=== PATIENT | male | born 1960 | race Caucasian/White ===

== ENCOUNTER 2018-04-20 11:20 | Inpatient (IN) | payer OTHER ==
[2018-04-20] MEDS ORDERED: Adacel (T-DAP) 0.5 ML SYRINGE ONE (11:30)
[2018-04-20] MEDS ORDERED: Dexamethasone 10 MG/ML VIAL ONE (11:30)
[2018-04-20 12:02] LABS: Actual Bicarbonate (HCO3a) 16.3 mEq/L (22-28); Analyzer IN Cardio ER; CO2 Tension 33.2 mmHg (35.0-45.0); Carboxyhemoglobin (COHb) 1.1 gm% (0.0-3.0); Hemoglobin (Hb) 13.2 g/dL (14.0-18.0); pH, Arterial 7.31 (7.35-7.45)
[2018-04-20 12:03] LABS: Puncture Site RRA
[2018-04-20] MEDS ORDERED: Propofol 1,000 MG/100 ML VIAL IV ONE (12:19)
[2018-04-20] MEDS ORDERED: Cefepime 2 GM VIAL ONE (12:22)
[2018-04-20] MEDS ORDERED: Midazolam HCl 2 mg/2 ml Vial ONE (12:29)
[2018-04-20 12:43] LABS: Bilirubin Negative (Negative); Blood, Urine Moderate (Negative); Clarity CLEAR (Clear); Glucose, Urine (Dipstick) Negative (Negative); Leukocyte Negative (Negative); Nitrite Negative (Negative); Protein, Urine (Dipstick) Trace mg/dL (Neg-Trace); Specific Gravity, Urine 1.016 (1.002-1.036); Urobilinogen 0.2 mg/dL (0.2-1.0)
[2018-04-20 12:46] LABS: Bacteria/HPF None Seen HPF (None Seen); Hyaline Casts/LPF 4-6 HYALINE CAST LPF (0-3 Hyaline); Pathc Cast-AUWi Flag 1.01 (0-2.49); Squamous Epithelial 0-3 HPF (0-3); WBC/HPF 0-3 HPF (0-3)
[2018-04-20] MEDS ORDERED: Bacitracin Zinc 1 Packet ONE (13:57)
[2018-04-20 14:24] LABS: Acetaminophen Less than 6.0 mcg/mL (10.0-30.0); Alcohol Less than 10 mg/dL (Less than 10); Salicylate Less than 8.0 mg/dL (15.0-30.0)
[2018-04-20 14:30] LABS: Amphetamine Not Detected (NotDetected); Barbiturates Screen Detected (NotDetected); Benzodiazepine Screen Not Detected (NotDetected); Cocaine Metabolite Screen Not Detected (NotDetected); Medtox Control Line Valid? VALID (VALID); Medtox Reader # READER 1; Methadone Not Detected (NotDetected); Methamphetamine Not Detected (NotDetected); Opiate Screen Not Detected (NotDetected); Oxycodone Screen Not Detected (NotDetected); Phencyclidine (PCP) Not Detected (NotDetected); THC/Cannabinoid Screen Not Detected (NotDetected); Tricyclic Screen Not Detected (NotDetected)
[2018-04-20] MEDS ORDERED: Sodium Chloride 0.9% 1,000 ML IV SCH (15:17)
[2018-04-20] MEDS ORDERED: Ondansetron ODT 4 MG TAB PO PRN (15:17)
[2018-04-20] MEDS ORDERED: Ondansetron PF 4 MG/2 ML Vial IVP PRN (15:17)
[2018-04-20] MEDS ORDERED: traMADol HCl 50 MG TAB PO PRN (15:17)
[2018-04-20] MEDS ORDERED: Dextrose 50% Abboject 50 ML SYRINGE SLOW IVP PRN (15:17)
[2018-04-20] MEDS ORDERED: Dextrose 5% in Water 1,000 ML IV PRN (15:17)
[2018-04-20] MEDS ORDERED: Cyclobenzaprine 10 MG TAB PO PRN (15:17)
[2018-04-20] MEDS ORDERED: hydrALAZINE 20 MG/ML VIAL SLOW IVP PRN (15:17)
[2018-04-20 15:27] VITALS: BMI 23.8
[2018-04-20] MEDS ORDERED: Acetaminophen 1,000 MG in Premix Bag 1 BAG IVPB SCH (15:30)
[2018-04-20 16:07] LABS: #Lymphocytes 0.4 thou/uL (1.20-3.40); #Monocytes 0.5 thou/uL (0.11-0.59); #Neutrophils 12.1 thou/uL (1.40-6.50); %Basophils 0.1 % (0.0-1.0); %Eosinophils 0.1 % (0.0-10.0); %Lymphocytes 2.7 % (21.0-51.0); %Neutrophils 93.1 % (42.0-75.0); Hemoglobin 12.6 g/dL (14.0-18.0); Mean Corpuscular HGB CONC 32.7 g/dL (32.0-36.0); Mean Corpuscular Hemoglobin 33.3 pg (27.0-31.0); Mean Platelet Volume 6.6 fL (7.4-10.4); Platelet Count 229 thou/uL (130-400); RBC Distribution Width 11.4 % (11.5-14.5); Red Blood Cell (RBC) Count 3.78 mill/uL (4.70-6.10); White Blood Cell (WBC) Count 13.1 thou/uL (4.8-10.8)
[2018-04-20 16:22] LABS: Lactic Acid 1.1 mmol/L (0.5-2.2)
[2018-04-20 16:27] LABS: Anion Gap 15 mmol/L (10-20); BUN (Urea Nitrogen) 10 mg/dL (8.4-25.7); Calc. Creatinine Clearance 121 mL/min (70-130); Calcium 7.9 mg/dL (7.8-10.44); Carbon Dioxide 17 mmol/L (22-29); Chloride 111 mmol/L (98-107); Estimated GFR-MDRD Greater than 90; Glucose 111 mg/dL (70-105); Potassium 4.4 mmol/L (3.5-5.1); Sodium 139 mmol/L (136-145)
--- NOTE | 2018-04-20 16:31 | HP ---
REQUESTING PHYSICIAN: Henry Alvarez DO ATTENDING SURGEON: Rohit Almanza DO CONSULTATIONS: Neurosurgery, Juan Luis Brown MD HISTORY OF PRESENT ILLNESS: The patient is a 58-year-old man, who was reportedly walking his dogs when he says he lost his footing and fell. The patient states that his back pain was so intense he was unable to get himself up out of the [place]. He was found by a neighbor who notified EMS, who brought him to the emergency department where he underwent evaluation and examination. It was noted that the patient's core temperature was 92 as reported by EMS. The patient was shaking uncontrollably and was unable to communicate well with the ER staff at which time the decision was made to intubate the patient to clear his airway and make his CT scans possible. Post intubation and after warming, the patient was able to be extubated. He was able to follow command and communicate with a thumbs up and by writing on a piece of paper. The patient was extubated in the emergency department without difficulty. Upon extubation, the patient's chief complaint was still upper back pain. He denied headache, neck pain, or any other trauma. The patient states that his back hurts today more than it did when he fell in February, but has had consistent pain in the same general area. ALLERGIES: NONE. CURRENT MEDICATIONS: None. PAST MEDICAL HISTORY: Migraines, vertigo, and chronic back pain. PAST SURGICAL HISTORY: Back surgery and hernia repairs x3. SOCIAL HISTORY: The patient denies drug or tobacco use and admits to drinking occasionally, though there was report after contact with the brother who states the patient sometimes drinks heavily. REVIEW OF SYSTEMS: A 10-point review of systems is negative as otherwise stated. PHYSICAL EXAMINATION: VITAL SIGNS: Temperature is 98.7, heart rate 118, blood pressure 127/80, respirations 17, oxygen saturations 98% on room air. GENERAL: The patient is resting comfortably in bed. He has just been extubated. He is awake, alert, and oriented. Wolf Coma Scale is 15. The patient was able to give me his history and it appeared appropriate. HEENT. Head is normocephalic and atraumatic. Eyes, extraocular motion intact. PERRLA bilaterally. Ears are atraumatic without discharge. Nose atraumatic without discharge. Oropharynx is clear. NECK: Nontender. Trachea is midline. No JVD. CHEST: Clear to auscultation with good inspiratory and expiratory effort. HEART: Regular rate and rhythm. ABDOMEN: Soft, flat, nontender with active bowel sounds. PELVIS: Stable. EXTREMITIES: Bilateral lower extremities show 1+ pitting edema. The patient also has multiple abrasions noted to his feet. BACK: Tender to palpation in the area of his midscapular area both in the midline and paraspinous. LABORATORY FINDINGS: Laboratory results are pending. Urinalysis and urine drug screen are unremarkable. IMAGING: Radiographic findings: CT of the brain without contrast shows a right punctate occipital lobe hyperdensity that may represent hemorrhage. Recommend close followup. CT of the C-spine without contrast shows no fracture or dislocation. CT of the chest, abdomen, and pelvis with IV contrast shows an age indeterminate compression fracture of T5, otherwise unremarkable. ASSESSMENT/PLAN: 1. Status post ground level fall. 2. Possible intracranial hemorrhage. 3. Age-indeterminate T5 compression fracture. 4. Multiple abrasions. 5. Concussion. PLAN: Plan will be to admit the patient to the critical care unit for frequent neurologic exams and also in light of his post extubation. The patient will have pulmonary toilet, gastritis and mechanical VTE prophylaxis. Repeat head CT in the morning per Neurosurgery and also [facility] brace when out of bed for his T-spine fracture. The patient will have pain control, pulmonary toilet, gastritis, mechanical VTE prophylaxis, Physical and Occupational Therapy. A clear liquid diet overnight. CT will be repeated sooner if he has a decline of two points on his Adrian Coma Scale. The evaluation, examination, laboratory, and radiographic findings were discussed with Dr. Almanza prior to this dictation. Job ID: [id number]
[2018-04-20] MEDS: traMADol HCl 50 MG TAB PO PRN (17:42)
[2018-04-20] MEDS: Famotidine 20 MG TAB PO SCH (21:31)
--- NOTE | 2018-04-20 22:52 | CON ---
DATE OF CONSULTATION: This is a 50-minute initial patient evaluation of which greater than 50% of the exam was spent in counseling and coordinating the patient's care. Remainder of the exam was spent in review of the patient's medical records and review of appropriate imaging studies. CHIEF COMPLAINT: Found unresponsive with T5 burst fracture and right parietal region hyperdensities. HISTORY OF PRESENT ILLNESS: Mr. Lin is a pleasant 58-year-old male who originally presented to [facility] with hypothermia and respiratory distress. He was intubated, although moving all extremities equally. His respiratory status eventually improved and he was able to be extubated. On exam, he is conversant and is able to provide history. He states he was taking his dog for a walk earlier this morning and woke up at [facility]. By report, he is not on blood thinners. Review of the patient's head CT again showed some hyperdensities in the right parietal region without midline shift or mass effect. Review of his cervical spine CT is negative for fracture. However, there is a T5 burst fracture noted on chest, abdomen, and pelvis CT. The patient states he does have some back pain noted significantly improved with his well-fitting clamshell TLSO brace that he is currently wearing. PHYSICAL EXAMINATION: The patient is awake, alert, and appropriate. GCS currently is 15. He moves all four extremities equally and appears to have good strength in all four extremities. Again, he is wearing a well-fitting clamshell TLSO brace. His pupils are equal, round, and reactive bilaterally. IMPRESSION AND DIAGNOSIS: Status post found unresponsive with T5 burst fracture and right parietal hyperdensities. PLAN: I discussed the patient's case and imaging with Dr. Brown. At this time in regard to the patient's fracture, we will plan to manage this fracture conservatively in a brace. I would like him to wear this anytime he is out of bed. He does not need to wear this in the shower. I would like him to lift less than 10 pounds. Plan for repeat head CT to monitor the hyperdensities, but otherwise we will have q.4 hours neuro checks and I am okay with the patient eating. Please call with any changes in the patient's neurologic status. Otherwise, we will follow up in the morning, sooner should symptoms dictate. Job ID: [id number]
[2018-04-21] MEDS: Acetaminophen 500 MG TAB PO SCH ×3 (00:15→13:28)
[2018-04-21] MEDS: traMADol HCl 50 MG TAB PO PRN ×2 (00:15→05:55)
[2018-04-21 05:48] LABS: #Lymphocytes 1.5 thou/uL (1.20-3.40); #Monocytes 0.6 thou/uL (0.11-0.59); #Neutrophils 8.8 thou/uL (1.40-6.50); %Basophils 0.2 % (0.0-1.0); %Eosinophils 0.2 % (0.0-10.0); %Lymphocytes 13.4 % (21.0-51.0); %Monocytes 5.6 % (0.0-10.0); %Neutrophils 80.7 % (42.0-75.0); Hemoglobin 12.9 g/dL (14.0-18.0); Mean Corpuscular HGB CONC 32.2 g/dL (32.0-36.0); Mean Corpuscular Hemoglobin 32.6 pg (27.0-31.0); Mean Platelet Volume 6.4 fL (7.4-10.4); Platelet Count 209 thou/uL (130-400); RBC Distribution Width 11.7 % (11.5-14.5); Red Blood Cell (RBC) Count 3.96 mill/uL (4.70-6.10); White Blood Cell (WBC) Count 10.9 thou/uL (4.8-10.8)
[2018-04-21 06:09] LABS: Anion Gap 14 mmol/L (10-20); BUN (Urea Nitrogen) 11 mg/dL (8.4-25.7); Calc. Creatinine Clearance 103 mL/min (70-130); Carbon Dioxide 23 mmol/L (22-29); Chloride 107 mmol/L (98-107); Estimated GFR-MDRD Greater than 90; Glucose 90 mg/dL (70-105); Potassium 3.6 mmol/L (3.5-5.1); Sodium 140 mmol/L (136-145)
--- NOTE | 2018-04-21 07:36 | CT ---
HEAD CT NONCONTRAST: Date: 04/21/18 INDICATION: History of altered mental status. Follow-up for subtle hyperdensity of the extra-axial space. FINDINGS: There is redemonstration of subtle hyperdensity overlying the mid to posterior right temporal lobe, w ithout associated mass effect. Finding is too small to definitively characterize, although does appea r similar. No ventriculomegaly or midline shift. There is slight hypodensity of each cerebral hemisph ere, favoring gliosis. Calvarium is intact. IMPRESSION: Persistence of minute, subtle hyperdensity overlying the right temporal convexity. This does not exer t mass effect. Consider pre and postcontrast brain MRI as a follow-up to more definitively characteri ze. POS: [facility]
--- NOTE | 2018-04-21 08:54 | RAD ---
AP CHEST: History: Status post extubation. Date: 04-21-18 Comparison: 04-20-18 FINDINGS: AP chest demonstrates interval extubation of the patient. There is ectasia of the aorta. The lungs are well aerated. No evidence of active intrathoracic disease seen. No evidence of effusion s, pneumonia, or pneumothorax is seen. IMPRESSION: Interval extubation of the patient. POS: [facility]
[2018-04-21] MEDS: Famotidine 20 MG TAB PO SCH (09:17)
[2018-04-21 11:46] VITALS: BP 138/78; TEMP 98.6
--- NOTE | 2018-04-21 14:26 | DIS ---
DATE OF ADMISSION: 04/20/2018 DATE OF DISCHARGE: 04/21/2018 ADMISSION DIAGNOSES: 1. Status post ground level fall. 2. Possible intracranial hemorrhage. 3. Age-indeterminate T5 compression fracture. 4. Multiple abrasions. 5. Concussion. CONSULTATIONS: Neurosurgery, Dr. Brown. PROCEDURES: None. SUMMARY: The patient is a 58-year-old man, who was reportedly found in a lower [place] with altered mental status. The patient was unable to give a clear history of what happened, but he was noted to be hypothermic, was brought to the emergency department where he underwent evaluation, examination. During his evaluation in the emergency department, the patient became more altered and was unable to be still for his CT scans, at which time it was decided to intubate the patient to protect his airway and facilitate his scans. The patient was able to undergo his CT scans and was warmed at the same time. After his scans, the patient was able to be taken off sedation in the emergency department and extubated. Once extubated, he patient was able to give a story that he was walking his dog and fell. The patient will be admitted to the critical care unit for a short period for close observation having just been extubated and for serial neuro exams. The patient would later be moved upstairs for the remainder of his observation. The patient had no issues overnight. He was fitted with a TLSO brace in light of the fact that he had back pain that may have been acute on chronic injury. It was felt that he would be best served with a TLSO brace. Neurosurgery would also like to see him back in 2-3 weeks to rescan his head and evaluate his T-spine at that time also. The patient may follow up with the Trauma Clinic as needed. At the time of discharge, the patient was alert and oriented. His Wolf Coma Scale is 15. He was ambulating without difficulty. He is tolerating a diet. His pain was controlled with nonnarcotic pain medications. Job ID: [id number]
--- NOTE | 2018-04-25 10:12 | PQF ---
CHRISTOPHER PERALTA GARY PA-C [id number] SURG B- [id number] CLINICAL DOCUMENTATION CLARIFICATION FORM: POST DISCHARGE Addendum to original discharge summary date: ____ Late entry note date: __ DATE: 04/25/2018 ATTN: Dr. Hughes Please exercise your independent, professional judgment in responding to the clarification form. Clinical indicators are provided on the bottom of this form for your review Please check appropriate box(s) to clarify if the following diagnosis has been ruled in or ruled out: SEPSIS [ ] Ruled in diagnosis [ ] Continue to treat [ ] Resolved [ X ] Ruled out diagnosis [ ] Cannot rule out diagnosis [ ] Other diagnosis [ ] Unable to determine In addition, please specify: Present on Admission (POA): [ ] Yes [ ] No [ X] Unable to determine For continuity of documentation, please document condition throughout progress notes and discharge summary. Thank You. CLINICAL INDICATORS - SIGNS / SYMPTOMS / LABS ER- Dr. Alvraez Pulse 115, Resp 30, Temp 92.8 Lactic 1.1, WBC 13.1 (04/20) Metabolic acidosis, sepsis RISK FACTORS Trauma ground level fall, possible intracranial hemorrhage hypothermia Advancing Age TREATMENTS Initiation Sepsis Protocol IV CBC (This form is maintained as a part of the permanent medical record) 2014 [employer]. All Rights Reserved Christian [email or web address] [phone] HSANNON
== END 2018-04-21 13:15 | disposition home or self-care (01) | DRG 83 ==
LOC: ERS 11:20 → CCU 15:04 → SURG B 19:51
PROVIDERS: ADMIT Surgery; ATTEND Surgery
DX: S06.309A Unspecified focal traumatic brain injury with loss of consciousness of unspecified duration, initial encounter (principal); S22.051A Stable burst fracture of T5-T6 vertebra, initial encounter for closed fracture; E87.2 Acidosis; S06.0X9A Concussion with loss of consciousness of unspecified duration, initial encounter; T14.8XXA Other injury of unspecified body region, initial encounter; T68.XXXA Hypothermia, initial encounter
CPT/HCPCS: 31500; 36415; 36416; 51702; 70450; 71045; 80048; 80306; 80307; 81003; 81015; 82805; 83605; 83930; 85025; 87040; 87086; 90471; 90715; 93005; 94002; 94640; 96361; 96365; 96366; 96368; 96375; 96376; 99292; G0390; J0131; J0692; J1100; J2250; J2405; J2704; J3370; L0639

== ENCOUNTER 2019-08-18 21:47 | Inpatient (IN) | payer OTHER ==
[2019-08-18 22:36] LABS: #Lymphocytes 0.7 thou/uL (1.20-3.40); #Monocytes 0.8 thou/uL (0.11-0.59); #Neutrophils 14.1 thou/uL (1.40-6.50); %Eosinophils 0.1 % (0.0-10.0); %Lymphocytes 4.6 % (21.0-51.0); %Monocytes 5.3 % (0.0-10.0); %Neutrophils 89.9 % (42.0-75.0); Hemoglobin 16.3 g/dL (14.0-18.0); Mean Corpuscular HGB CONC 34.9 g/dL (32.0-36.0); Mean Corpuscular Volume 94.5 fL (78.0-98.0); Mean Platelet Volume 7.1 fL (7.4-10.4); Platelet Count 311 thou/uL (130-400); RBC Distribution Width 12.5 % (11.5-14.5); Red Blood Cell (RBC) Count 4.93 mill/uL (4.70-6.10); White Blood Cell (WBC) Count 15.7 thou/uL (4.8-10.8)
[2019-08-18 22:51] LABS: ALT (SGPT) 50 U/L (8-55); AST (SGOT) 138 U/L (5-34); Albumin 3.9 g/dL (3.5-5.0); Alkaline Phosphatase 89 U/L (40-110); Anion Gap 25 mmol/L (10-20); BUN (Urea Nitrogen) 11 mg/dL (8.4-25.7); Bilirubin, Total 0.8 mg/dL (0.2-1.2); Calc. Creatinine Clearance 0 mL/min (70-130); Calcium 9.1 mg/dL (7.8-10.44); Carbon Dioxide 19 mmol/L (22-29); Chloride 88 mmol/L (98-107); Estimated GFR-MDRD 75; Globulin 2.4 g/dL (2.4-3.5); Glucose 144 mg/dL (70-105); Protein, Total 6.3 g/dL (6.0-8.3); Sodium 130 mmol/L (136-145)
[2019-08-18 22:57] LABS: Potassium 2.3 mmol/L (3.5-5.1)
[2019-08-18 23:03] LABS: CK (CPK) 4998 U/L (30-200)
[2019-08-18 23:16] LABS: CKMB 16.1 ng/mL (0-6.6)
[2019-08-18] MEDS ORDERED: Ondansetron PF 4 MG/2 ML Vial ONE (23:25)
[2019-08-18] MEDS ORDERED: Morphine 4 MG/ML VIAL ONE (23:25)
--- NOTE | 2019-08-18 23:30 | CT ---
CT HEAD WITHOUT IV CONTRAST COMPARISON: 04/21/2018 HISTORY: Injury after a fall. TECHNIQUE: Axial CT imaging at 5 mm intervals from vertex through skull base without contrast FINDINGS: There is a increased density focus overlying the right temporal occipital convexity on CT head on 04/20. This finding is not appreciated on today's exam. Mild cerebral volume loss is again seen. There is no evidence of an acute infarction, hemorrhage, mass effect, or midline shift. The ventricul ar system is normal in size, shape, and position. Air-fluid level is seen in the left sphenoid sinus. Mild mucosal thickening is seen within the ethmoi marylou air cells bilaterally. Mastoid air cells are clear. Osseous structures appear intact.No displaced calvarial fracture is identified. Mild scalp soft tissu e swelling is seen in the left anterior frontal region. IMPRESSION: 1. No acute intracranial abnormality demonstrated.2. Air-fluid level left sphenoid sinus with calcifi ed thickening in the ethmoidal air cells. 3. Mild scalp soft tissue swelling left anterior frontal region.
--- NOTE | 2019-08-18 23:34 | CT ---
EXAM: CT cervical spine PROVIDED CLINICAL HISTORY: Patient tripped and fell 3 days ago. Patient's midline on ground since fall. TECHNIQUE: Contiguous axial CT images are obtained through the cervical spine from the skull base to the T1 leve l. Sagittal and coronal reformatted images are provided. COMPARISON: 04/20/2018 FINDINGS: No evidence for fracture or traumatic subluxation. No prevertebral soft tissue swelling apparent. Visualized lung apices appear clear. Subcentimeter too small to characterize hypodense lesion is seen in each lobe of thyroid gland stable compared to prior exam. IMPRESSION: No evidence for fracture or traumatic subluxation.
[2019-08-19] MEDS ORDERED: Fentanyl 100 MCG/2 ML VIAL ONE (00:05)
--- NOTE | 2019-08-19 00:11 | RAD ---
Exam: XR Hip Lt 2-3 View HISTORY: Patient fell 3 days ago. Hit left hip. Left hip pain. COMPARISON: None FINDINGS: There is a subcapital left femoral neck fracture with varus angulation of the fracture fragments. Dis gloria fracture fragment is mildly displaced superiorly. There is mild impaction of the fracture fragments. Surgical clips overlie the right hemipelvis. No other findings seen. IMPRESSION: Mildly impacted and slightly angulated subcapital left femoral neck fracture.
[2019-08-19] MEDS ORDERED: D5 1/2 NS w/40 mEq KCL 1,000 ML IV SCH ×2 (00:15→06:45)
[2019-08-19 01:08] LABS: Bacteria/HPF None Seen HPF (None Seen); Bilirubin 1+ (Negative); Blood, Urine 2+ (Negative); Clarity Clear (Clear); Glucose, Urine (Dipstick) Normal (Negative); Ketone, Urine Greater than 150 mg/dL (Negative); Leukocyte Negative Leu/uL (Negative); Nitrite Negative (Negative); Protein, Urine (Dipstick) 100 mg/dL (Neg-Trace); RBC/HPF 0-3 HPF (0-3); Specific Gravity, Urine 1.021 (1.002-1.036); Squamous Epithelial 0-3 HPF (0-3); WBC/HPF 0-3 HPF (0-3); pH, Urine 6.5 (5.0-9.0)
[2019-08-19] MEDS ORDERED: hydrALAZINE 20 MG/ML VIAL SLOW IVP PRN (01:13)
[2019-08-19] MEDS ORDERED: Dextrose 50% Abboject 50 ML SYRINGE SLOW IVP PRN (01:13)
[2019-08-19] MEDS ORDERED: Ondansetron PF 4 MG/2 ML Vial IVP PRN (01:13)
[2019-08-19] MEDS ORDERED: Dextrose 5% in Water 1,000 ML IV PRN (01:13)
[2019-08-19] MEDS ORDERED: Promethazine HCl 25 MG/ML VIAL IM PRN (01:13)
[2019-08-19 01:21] LABS: Lactic Acid 1.3 mmol/L (0.5-2.2)
[2019-08-19] MEDS ORDERED: traMADol HCl 50 MG TAB PO PRN ×2 (01:27→09:37)
[2019-08-19] MEDS ORDERED: Cyclobenzaprine 10 MG TAB PO PRN (01:27)
[2019-08-19 01:37] LABS: Phosphorus 2.1 mg/dL (2.3-4.7)
[2019-08-19] MEDS ORDERED: Sodium Phosphate 30 MMOL in Sodium Chloride 0.9% 250 ML 250 ML IVPB SCH (02:30)
--- NOTE | 2019-08-19 03:45 | HP ---
REQUESTING: Dr. Bains CONSULTS: Orthopedic Surgery, Dr. Cross. CHIEF COMPLAINT: Ground-level fall 3 days ago, left hip pain. HISTORY OF PRESENT ILLNESS: This is a 59-year-old gentleman who presented to the emergency room via EMS after he had a ground-level fall 3 days ago at home. The patient was unable to get to a telephone to call for help and laid on the floor for approximately 3 days since falling. The patient's family noticed they had not heard from him and went to check on him and found him on the floor, unable to ambulate. The patient denies any loss of consciousness. The patient does report hitting his head in which he has a small healing laceration above the left eyebrow. The patient denies any other injuries. The patient denies feeling short of breath, lightheaded, or dizzy prior to falling. The patient states that it was humid in his house as he did not have the air conditioner running, and he slipped on the humid floor in his bathroom. The patient was given 2 L of normal saline in the emergency room. REVIEW OF SYSTEMS: A 10-point review of systems is negative unless otherwise indicated in the above HPI. PAST MEDICAL HISTORY: Migraines. SURGICAL HISTORY: Hernia repair. ALLERGIES: NO KNOWN DRUG ALLERGIES. CURRENT MEDICATIONS: Unknown migraine medication. SOCIAL HISTORY: The patient lives alone, he is a retired [employer] worker 3 years ago, denies alcohol use, denies history of smoking, denies any illicit drug use. PHYSICAL EXAMINATION: GENERAL: A middle-aged gentleman, awake, alert, in no distress. VITAL SIGNS: Blood pressure 138/94, pulse 156, respirations 15, SpO2 93% on room air, temperature 98.7. HEENT: Normocephalic, laceration to the left frontal just above the eyebrow, healing, no signs of infection, facial abrasion. Pupils are equal, bilateral. Mucous membranes are severely dry. Midface is stable. NECK: Normal range of motion. No cervical spine tenderness. Trachea is midline. No JVD. RESPIRATORY: Respirations are even and nonlabored, bilateral breath sounds are clear. No wheezing, rales, or rhonchi. Deformity to the left clavicle. Denies pain. Denies previous injury. CARDIOVASCULAR: Tachycardic, no murmur, no pedal edema. ABDOMEN: Soft, nontender, nondistended, active bowel sounds. EXTREMITIES: Moves all extremities, no focal deficits, distal pulses 2+ in all extremities, left lower extremity mildly shortened and mildly externally rotated. Tenderness to palpation on the left hip. NEUROLOGIC: GCS 15. No focal deficits. LABORATORY DATA: WBC 15.7, RBC 4.93, hemoglobin 16.3, hematocrit 46.6, platelets 311. Sodium 130, potassium 2.3, chloride 88, carbon dioxide 19, anion gap 25, BUN 11, creatinine 1.01, estimated GFR 75, glucose 144. Lactate 2.3, repeat 1.3. Calcium 9.1, phosphorus 2.1, magnesium 2.1. Total bilirubin 0.8, AST 138, ALT 50, alkaline phosphatase 89. CK 4998, CK-MB 16.1. Troponin I 0.085, repeat 0.066. Albumin 3.9. Urinalysis; color is yellow, clarity is clear, specific gravity is 1.021, ketones positive, negative leukocyte esterase, negative wbc's, no bacteria. DIAGNOSTIC DATA: 1. A 12-lead EKG, impression, sinus tachycardia. No ST-segment changes. 2. Left hip x-ray, impression, mildly impacted and slightly angulated subcapital left femoral neck fracture. 3. Brain CT, impression, no acute intracranial abnormality. Mild scalp soft tissue swelling, left anterior frontal region. 4. Cervical spine CT, impression, no evidence of fracture or acute subluxation. 5. Chest x-ray, impression, lungs are hyperinflated, pending official read. Mild cardiomegaly. IMPRESSION: 1. Ground-level fall with delayed presentation. 2. Left eyebrow laceration, healing. 3. Left femoral neck fracture. 4. Acute traumatic pain. 5. Tachycardia secondary to dehydration. 6. Hypokalemia. 7. Hypophosphatemia. 8. Hyponatremia. 9. History of migraines. PLAN: Admit the patient to the surgical floor. The patient will be n.p.o. with IV maintenance fluids, D5 and half-normal saline with 40 of KCl at 120 mL an hour. Replace electrolytes. Monitor urinary output. The patient will be on bedrest. PT/OT to evaluate and treat postop. Dr. Cross plans to take the patient to the OR tomorrow for repair of his left femoral neck fracture. The patient was examined by Dr. Almanza in the emergency room. We will have nursing staff clean the patient's forehead laceration twice a day. We will repeat labs in the morning. Job ID: [id number]
[2019-08-19 04:21] VITALS: BMI 20.4
[2019-08-19] MEDS: traMADol HCl 50 MG TAB PO SCH ×2 (05:14→11:33)
[2019-08-19] MEDS: Acetaminophen 325 MG TAB PO SCH ×4 (05:14→22:59)
[2019-08-19 05:53] LABS: Hemoglobin 14.8 g/dL (14.0-18.0); Mean Corpuscular HGB CONC 34.6 g/dL (32.0-36.0); Mean Corpuscular Hemoglobin 32.9 pg (27.0-31.0); Mean Corpuscular Volume 95.2 fL (78.0-98.0); Mean Platelet Volume 7.2 fL (7.4-10.4); Platelet Count 283 thou/uL (130-400); RBC Distribution Width 12.5 % (11.5-14.5); Red Blood Cell (RBC) Count 4.48 mill/uL (4.70-6.10); White Blood Cell (WBC) Count 12.7 thou/uL (4.8-10.8)
[2019-08-19 06:18] LABS: Anion Gap 16 mmol/L (10-20); BUN (Urea Nitrogen) 10 mg/dL (8.4-25.7); CK (CPK) 2639 U/L (30-200); Calc. Creatinine Clearance 85 mL/min (70-130); Calcium 8.2 mg/dL (7.8-10.44); Carbon Dioxide 24 mmol/L (22-29); Chloride 94 mmol/L (98-107); Estimated GFR-MDRD 90; Glucose 128 mg/dL (70-105); Magnesium 2.2 mg/dL (1.6-2.6); Phosphorus 2.2 mg/dL (2.3-4.7); Sodium 132 mmol/L (136-145)
[2019-08-19 06:24] LABS: Potassium 2.4 mmol/L (3.5-5.1)
[2019-08-19] MEDS ORDERED: Potassium Chloride 40 MEQ in Sodium Chloride 0.9% 250 ML 250 ML IVPB SCH (07:45)
[2019-08-19] MEDS ORDERED: TETANUS AND DIPHTHERIA TOX/PF 0.5 ML DISP.SYRIN IM ONE (09:00)
--- NOTE | 2019-08-19 09:15 | RAD ---
PORTABLE CHEST: DATE: 08/19/2019. PROVIDED CLINICAL HISTORY: Preop. FINDINGS: Comparison 04/21/2018. Cardiac and mediastinal silhouette is within normal limits. No focal consolida tion, pleural fluid, or pneumothorax apparent. IMPRESSION: No evidence for an acute cardiopulmonary process. POS: [facility]
[2019-08-19] MEDS ORDERED: Calcium Chloride 1 GM/10 ML Abboject SYRINGE ONE (09:20)
[2019-08-19] MEDS ORDERED: Sodium Bicarb 50 MEQ/50 ML Abboject 8.4% SYRINGE ONE (09:20)
[2019-08-19] MEDS ORDERED: EPINEPHrine 1 MG/10 ML Abboject SYRINGE ONE (09:20)
[2019-08-19] MEDS ORDERED: EPINEPHrine 1 MG/ML AMP ONE (09:20)
[2019-08-19] MEDS: Bacitracin 1 PK TOP SCH ×3 (09:32→19:16)
[2019-08-19] MEDS: Senokot S 8.6-50 MG TAB PO SCH ×2 (10:03→19:18)
[2019-08-19] MEDS: Polyethylene Glycol 3350 17 GM Packet PO SCH (10:03)
[2019-08-19] MEDS ORDERED: Adenosine 6 MG/2 ML VIAL ONE (11:12)
[2019-08-19] MEDS ORDERED: Acetaminophen/Codeine 30-300mg Tablet PO PRN (12:25)
[2019-08-19 12:28] LABS: SARS-CoV-2 MS2 Positive; SARS-CoV-2 N Gene Negative; SARS-CoV-2 S Gene Negative; SARS-CoV-2 orf1ab Negative
[2019-08-19] MEDS: Acetaminophen/Codeine 30-300mg Tablet PO PRN ×2 (12:47→19:17)
--- NOTE | 2019-08-19 13:59 | CON ---
DATE OF CONSULTATION: 08/19/2019 REQUESTING PHYSICIAN: Dr. Rohit Almanza. BRIEF HISTORY OF PRESENT ILLNESS: The patient is a 59-year-old gentleman, who was examined in his hospital room at [facility]. He reports that 3 days prior to admission, he sustained a ground level fall, struck his head during the course of the fall. He was unable to stand and after 3 days on the floor, he was able to crawl to a phone where eventually he was able to receive assistance. Upon arrival at [place], he had a laceration over the left eyebrow as well as complaints of left groin pain. Workup included x-rays of the left hip that showed a femoral neck fracture with displacement. As such, the patient now admitted to the Trauma Service with Orthopedic consultation requested. The patient was found to have a CK of 4998 with a sodium of 130 and potassium of 2.3. He was found to have a white count of 12.7 with hematocrit of 42.7 and 283,000 platelets. The patient was started on IV hydration as well as electrolyte replacement. PAST MEDICAL HISTORY: Remarkable for migraines. PAST SURGICAL HISTORY: Herniorrhaphy. MEDICATIONS: Just a medication for his migraine. ALLERGIES: NONE KNOWN. SOCIAL HISTORY: The patient lives alone with his dog. He is retired from [employer] approximately 3 years ago. The patient denies alcohol, tobacco, or drug use. FAMILY HISTORY: Noncontributory for this fracture. REVIEW OF SYSTEMS: Shows a gentleman who denies any recent fevers, chills, or sweats. He denies chest pain, cough, or shortness of breath. He denies numbness or tingling in this left lower extremity. PHYSICAL EXAMINATION: VITAL SIGNS: He is found to have a temperature of 98.2, heart rate of 108, respiratory rate of 18, and blood pressure of 135/75. HEENT: Remarkable for a laceration over the left eyebrow with no erythema. HEART: Shows a regular rate and rhythm without murmur. LUNGS: Clear to auscultation bilaterally with good breath sounds. Chest wall is nontender. ABDOMEN: Flat and nontender with normal bowel sounds. PELVIS: Stable to compression. EXTREMITIES: Most remarkable for his left lower extremity, which is remarkable for an atraumatic knee, ankle, and foot. He is wiggling his toes normally and has normal intact subjective sensation. He has groin pain with any type of movement of the leg including log rolling. He is found to have just a slight leg length discrepancy with this involved left leg being slightly shorter than that of the right. LABORATORY DATA: Labs are refer you to the history of present illness for his current labs. IMAGING STUDIES: X-rays, two view x-ray of the left hip reveals an angulated subcapital femoral neck fracture of the left side. ASSESSMENT: A 59-year-old gentleman status post fall 3 days ago, now with evidence of left femoral neck fracture with hyponatremia and hypokalemia. PLAN: Today, I discussed with the patient that he does have a femoral neck fracture. We discussed a variety of treatment options included cannulated screw stabilization versus hemiarthroplasty versus total hip arthroplasty. Given the condition of the fracture, his age and level of activity, I think he would be most satisfied with a total hip arthroplasty as a means to restore him back to his normal level of functioning. We have discussed risks and benefits of total hip arthroplasty. These include, but are not limited to bleeding, infection, nerve injury, DVT, PE, dislocation, leg length inequality, continued pain and loss of limb or life. The patient appeared to understand and does wish to proceed. I also discussed with the patient that I have been in conversation with Dr. Jr Sorto who has graciously agreed to proceed with this surgery once patient's electrolytes have been stabilized. At this time, we will tentatively plan to proceed with surgery on the morning of August 19. The patient appears comfortable with all of our discussions. Job ID: [id number]
--- NOTE | 2019-08-19 15:40 | PRG ---
DATE OF SERVICE: 08/19/2019 SUBJECTIVE: The patient was seen this morning during rounds. He was sitting up in bed with no signs of acute distress. He reported pain is well controlled. He is tolerating a regular diet. Ortho Surgery is planning to take the patient to the OR tomorrow instead of today. Subsequently, he still has IV fluids and regular diet, and he will be n.p.o. at midnight. At time of my evaluation, he had not had anything to drink yet and reported his pain is 7/10. At that time, we increased his pain medication, and I asked nursing to give him medication, which she did. OBJECTIVE: VITAL SIGNS: Temperature 98.3, pulse 98, respirations 16, oxygen saturation 92% on room air, blood pressure 118/83. GENERAL: Weak-appearing elderly male, lying in bed with no signs of acute distress. PULMONARY: Equal chest rise and fall. No signs of acute respiratory distress. CARDIAC: Regular rate and rhythm. GI: Abdomen is soft, nontender, and nondistended. EXTREMITIES: 2+ pulses in all extremities. Gross motor and sensation are intact. No significant swelling noted. The patient has left-sided pelvic pain. NEUROLOGIC: GCS is 15. LABORATORY FINDINGS: White count 12.7, hemoglobin 14.8, hematocrit 42.7, platelets 283. Sodium 132, potassium 2.4, chloride 94, bicarb 24, BUN 10, creatinine 0.87, glucose 128, phosphorus 2.2, magnesium 2.0. CK 2639. DIAGNOSTIC FINDINGS: There are no new diagnostic findings to report. ASSESSMENT: 1. Status post mechanical fall from standing with prolonged downtime, total of 3 days. 2. Left femoral neck fracture. 3. Left brow laceration. 4. Elevated CK, but no rhabdomyolysis. 5. Acute dehydration, improving. 6. Tachycardia, resolved. 7. Acute hypokalemia and hypophosphatemia as well as hyponatremia. 8. History of migraines. 9. Acute traumatic pain, worse. PLAN: The patient will have a regular diet. Continue IV fluids as he is dehydrated and potassium is low. He will be n.p.o. at midnight and go to the OR with Orthopedic Surgery tomorrow. Increase his pain regimen to Tylenol No. 3 and Flexeril. Re-evaluate pain management this evening. Continue to hold off on DVT prophylaxis. We will repeat electrolytes this evening to see if further electrolyte replacement is indicated. Repeat CK as well. We will have Physical and Occupational Therapy evaluate the patient postoperatively tomorrow. Job ID: [id number]
[2019-08-19 16:56] LABS: Anion Gap 13 mmol/L (10-20); BUN (Urea Nitrogen) 12 mg/dL (8.4-25.7); CK (CPK) 1638 U/L (30-200); Calc. Creatinine Clearance 91 mL/min (70-130); Calcium 8.1 mg/dL (7.8-10.44); Carbon Dioxide 27 mmol/L (22-29); Chloride 96 mmol/L (98-107); Estimated GFR-MDRD Greater than 90; Glucose 203 mg/dL (70-105); Magnesium 2.3 mg/dL (1.6-2.6); Sodium 134 mmol/L (136-145)
[2019-08-19 17:00] LABS: Phosphorus 1.8 mg/dL (2.3-4.7); Potassium 2.4 mmol/L (3.5-5.1)
[2019-08-19] MEDS ORDERED: Potassium Phosphate 30 MMOL in Sodium Chloride 0.9% 250 ML 250 ML IVPB SCH (17:15)
--- NOTE | 2019-08-19 18:06 | RAD ---
EXAM: CHEST ONE VIEW HISTORY: Respiratory distress COMPARISON: 08/19/2019 at 1330 hours. FINDINGS: Cardiac silhouette and pulmonary vasculature are within normal limits. There is now a linear patchy p arenchymal density present in the right mid lung zone. Lungs otherwise appear clear. Osteopenia is present. No other interval change. IMPRESSION: Interval development of a linear and patchy parenchymal density right midlung zone which could be rel ated to subsegmental atelectasis. Developing focal area of pneumonitis is a possibility. Follow-up evaluation is recommended.
[2019-08-19] MEDS: Cyclobenzaprine 10 MG TAB PO PRN (22:59)
[2019-08-20 05:30] LABS: INR-International Normal Ratio 1.4; PTT 30.4 sec (22.9-36.1); Prothrombin Time 16.7 sec (12.0-14.7)
[2019-08-20] MEDS: Acetaminophen 325 MG TAB PO SCH ×3 (05:32→17:33)
[2019-08-20 05:42] LABS: Hemoglobin 14.4 g/dL (14.0-18.0); Mean Corpuscular HGB CONC 36.1 g/dL (32.0-36.0); Mean Corpuscular Hemoglobin 34.8 pg (27.0-31.0); Mean Corpuscular Volume 96.3 fL (78.0-98.0); Mean Platelet Volume 7.5 fL (7.4-10.4); Platelet Count 256 thou/uL (130-400); RBC Distribution Width 12.7 % (11.5-14.5); Red Blood Cell (RBC) Count 4.15 mill/uL (4.70-6.10); White Blood Cell (WBC) Count 11.7 thou/uL (4.8-10.8)
[2019-08-20 06:00] LABS: Anion Gap 12 mmol/L (10-20); BUN (Urea Nitrogen) 11 mg/dL (8.4-25.7); CK (CPK) 887 U/L (30-200); Calc. Creatinine Clearance 107 mL/min (70-130); Calcium 8.1 mg/dL (7.8-10.44); Carbon Dioxide 26 mmol/L (22-29); Chloride 97 mmol/L (98-107); Estimated GFR-MDRD Greater than 90; Glucose 140 mg/dL (70-105); Magnesium 2.2 mg/dL (1.6-2.6); Phosphorus 2.6 mg/dL (2.3-4.7); Potassium 2.4 mmol/L (3.5-5.1); Sodium 133 mmol/L (136-145)
[2019-08-20] MEDS ORDERED: Potassium Phosphate 30 MMOL in Sodium Chloride 0.9% 500 ML IVPB SCH (06:15)
[2019-08-20] MEDS ORDERED: Fentanyl 100 MCG/2 ML VIAL ONE (06:53)
[2019-08-20] MEDS ORDERED: Vancomycin 1.5 GRAM/300 ML BAG 1.5 GM in Premix Bag 1 BAG IVPB SCH (07:30)
[2019-08-20] MEDS: Acetaminophen/Codeine 30-300mg Tablet PO PRN (09:36)
[2019-08-20] MEDS: Senokot S 8.6-50 MG TAB PO SCH (09:36)
[2019-08-20] MEDS: Bacitracin 1 PK TOP SCH ×2 (09:36→15:31)
[2019-08-20] MEDS: Polyethylene Glycol 3350 17 GM Packet PO SCH (09:37)
[2019-08-20] MEDS ORDERED: Iopamidol-370 76% 500 ML 1 ML ONE (09:39)
[2019-08-20] MEDS: NS 0.9% w/ 40 MEQ KCL 1,000 ML IV SCH ×2 (09:47→23:56)
[2019-08-20] MEDS ORDERED: Potassium Chloride 20 MEQ TAB PO SCH (10:45)
--- NOTE | 2019-08-20 12:08 | PRG ---
DATE OF SERVICE: 08/20/2019 This is Mayra Velázquez PA-C dictating a report for Jr Sorto MD. SUBJECTIVE: The patient was scheduled for total hip arthroplasty this a.m. with Dr. Sorto. The patient's surgery was canceled secondary to tachycardia and hypokalemia. Heart rate was noted in the 160s. He was considered unstable while he was in the preoperative waiting area. He subsequently has been transferred to the tele floor. Currently at bedside, the patient appears a bit confused. He reports his hip pain 08/24. Nurse at bedside states that his oxygen has been dropping into the 80s. She also reports his heart rate is very labile from the 60s all the way into the 120s or 130s. OBJECTIVE: CURRENT VITAL SIGNS: Show temperature of 98.9, pulse of 103, respiratory rate of 20, O2 saturation of 95% on 2 L nasal cannula, and blood pressure of 124/83. GENERAL: The patient is awake and alert. He is mildly confused at this time. No family is currently at bedside. EXTREMITIES: The patient is able to move his foot and his toes on the left lower extremity. Logroll exam does reproduce pain. ASSESSMENT AND PLAN: The patient with left displaced femoral neck fracture, scheduled for a total hip arthroplasty. We have gone ahead and let the patient eat today. He will be n.p.o. after midnight to plan for surgery tomorrow with Dr. Sorto. We will await clearance from the trauma team. Job ID: [id number]
[2019-08-20] MEDS ORDERED: Adenosine 6 MG/2 ML VIAL ONE ×3 (15:11→19:24)
[2019-08-20] MEDS: Cyclobenzaprine 10 MG TAB PO PRN (15:31)
[2019-08-20 15:39] LABS: #Lymphocytes 0.4 thou/uL (1.20-3.40); #Monocytes 0.3 thou/uL (0.11-0.59); %Basophils 0.2 % (0.0-1.0); %Eosinophils 0.2 % (0.0-10.0); %Lymphocytes 3.8 % (21.0-51.0); %Monocytes 3.2 % (0.0-10.0); %Neutrophils 92.7 % (42.0-75.0); Hemoglobin 14.2 g/dL (14.0-18.0); Mean Corpuscular HGB CONC 34.9 g/dL (32.0-36.0); Mean Corpuscular Volume 97.4 fL (78.0-98.0); Mean Platelet Volume 7.1 fL (7.4-10.4); Platelet Count 244 thou/uL (130-400); RBC Distribution Width 12.8 % (11.5-14.5); Red Blood Cell (RBC) Count 4.17 mill/uL (4.70-6.10); White Blood Cell (WBC) Count 10.8 thou/uL (4.8-10.8)
[2019-08-20 16:00] LABS: Anion Gap 12 mmol/L (10-20); BUN (Urea Nitrogen) 13 mg/dL (8.4-25.7); Calc. Creatinine Clearance 109 mL/min (70-130); Calcium 8.1 mg/dL (7.8-10.44); Carbon Dioxide 27 mmol/L (22-29); Chloride 100 mmol/L (98-107); Estimated GFR-MDRD Greater than 90; Glucose 145 mg/dL (70-105); Magnesium 2.3 mg/dL (1.6-2.6); Phosphorus 3.5 mg/dL (2.3-4.7); Potassium 3.1 mmol/L (3.5-5.1); Sodium 136 mmol/L (136-145)
[2019-08-20 16:04] LABS: Troponin I 0.055 ng/mL (< 0.028)
--- NOTE | 2019-08-20 16:21 | PRG ---
DATE OF SERVICE: 08/20/2019 SUBJECTIVE: The patient was seen this morning during rounds and again this afternoon. Originally, this morning, the patient had no complaints. He reported pain is well controlled. Tolerating a regular diet. His OR was canceled today because in the Day Stay area, the patient went into SVT at a rate of 160 and his potassium was still low. The patient converted back to normal sinus on his own and was hemodynamically stable the entire time. This afternoon, nursing called trauma to the bedside as patient was sustained SVT in the 150 to 160. He was hemodynamically stable and his mentation was at baseline. He has been receiving IV and p.o. potassium replacement. He had no complaints at the time of my evaluation. OBJECTIVE: VITAL SIGNS: Temperature 99.9, pulse 99, respirations 18, oxygen saturation 92% on room air, and blood pressure 110/89. GENERAL: Well-appearing elderly male, lying in bed with no signs of acute distress. PULMONARY: Equal chest rise and fall. Clear breath sounds bilaterally. No signs of acute respiratory distress. CARDIAC: Regular rate and rhythm. GASTROINTESTINAL: Abdomen is soft, nontender, and nondistended. EXTREMITIES: 2+ pulses in all extremities. Gross motor and sensation intact. No significant swelling noted. Left lower extremity is slightly shortened compared to the right. NEUROLOGIC: GCS is 15. LABORATORY FINDINGS: White count 11.7, hemoglobin 14.4, hematocrit 40.2, and platelets 256. Sodium 133, potassium 4.2, chloride 97, bicarb 26, BUN 11, creatinine 0.69, glucose 140, phosphorus 2.6, and magnesium 2.2. CK 887. DIAGNOSTIC FINDINGS: There are no new diagnostic findings to report. ASSESSMENT: 1. Status post mechanical fall with prolonged downtime of 3 days. 2. Left femoral neck fracture. 3. Left eyebrow laceration, well healing. 4. Dehydration. 5. Supraventricular tachycardia, now resolved. 6. Acute hypophosphatemia and hypokalemia, persistent. 7. History of migraines. 8. Hyponatremia, slightly worse. PLAN: The patient was moved to telemetry this morning. He did receive one dose of 6 mg of adenosine this afternoon for sustained SVT that was stable. He tolerated the medication well and his heart rate improved to the 80s. The patient remained hemodynamically stable the entire time. His IV fluids were changed to normal saline with 40 of K at 100 an hour. He is also free water restricted for 1 L each day. He received electrolyte replacement with magnesium. He also received additional oral potassium. We will repeat his blood work in the afternoon and follow that up. Repeat troponin and echo as well. The patient will likely go to the OR tomorrow with Orthopedic Surgery pending stable heart rate and improved potassium. This patient was seen and evaluated by Dr. Almanza and myself this morning during rounds. Job ID: [id number] [facility]
[2019-08-20] MEDS ORDERED: Heparin 10,000 UNITS/ 10 ML VIAL SLOW IVP SCH (17:15)
[2019-08-20] MEDS ORDERED: Heparin 25,000 units/D5W 500 ML IVPB SCH (17:15)
[2019-08-20] MEDS: Potassium Chloride 20 MEQ TAB PO SCH (17:33)
[2019-08-20 18:33] LABS: Hemoglobin 14.6 g/dL (14.0-18.0); Platelet Count 239 thou/uL (130-400)
[2019-08-20] MEDS ORDERED: Lorazepam 2 MG/ML VIAL ONE (19:31)
[2019-08-20] MEDS ORDERED: diphenhydrAMINE 50 MG/ML VIAL ONE (19:46)
[2019-08-20] MEDS ORDERED: Acetaminophen 650 MG Suppository PR SCH (20:00)
[2019-08-20 20:06] LABS: #Lymphocytes 0.7 thou/uL (1.20-3.40); #Monocytes 0.5 thou/uL (0.11-0.59); #Neutrophils 11.3 thou/uL (1.40-6.50); %Basophils 0.1 % (0.0-1.0); %Eosinophils 0.1 % (0.0-10.0); %Lymphocytes 5.4 % (21.0-51.0); %Monocytes 3.7 % (0.0-10.0); %Neutrophils 90.8 % (42.0-75.0); Hemoglobin 14.5 g/dL (14.0-18.0); Mean Corpuscular HGB CONC 33.8 g/dL (32.0-36.0); Mean Corpuscular Hemoglobin 33.3 pg (27.0-31.0); Mean Corpuscular Volume 98.6 fL (78.0-98.0); Mean Platelet Volume 7.4 fL (7.4-10.4); Platelet Count 252 thou/uL (130-400); RBC Distribution Width 13.1 % (11.5-14.5); Red Blood Cell (RBC) Count 4.33 mill/uL (4.70-6.10); White Blood Cell (WBC) Count 12.5 thou/uL (4.8-10.8)
[2019-08-20 20:09] LABS: Bilirubin Large (Negative); Blood, Urine Large (Negative); Glucose, Urine (Dipstick) Negative (Negative); Ketone, Urine 40 mg/dL (Negative); Leukocyte Negative (Negative); Nitrite Negative (Negative); Protein, Urine (Dipstick) 100 mg/dL (Neg-Trace); Specific Gravity, Urine 1.025 (1.005-1.030)
[2019-08-20 20:10] LABS: Clarity Turbid (Clear)
[2019-08-20] MEDS: Diazepam 10 MG/2 ML SYRINGE IVP SCH ×2 (20:10→20:18)
[2019-08-20 20:11] LABS: RBC/HPF Greater than 50 HPF (0-3)
[2019-08-20 20:13] LABS: Squamous Epithelial None Seen HPF (0-3)
[2019-08-20 20:14] LABS: Bacteria/HPF 1+ HPF (None Seen)
[2019-08-20] MEDS ORDERED: Rocuronium Bromide 10 MG/ML (10ML VIAL) ONE (20:15)
[2019-08-20 20:19] LABS: Lactic Acid 12.1 mmol/L (0.5-2.2)
[2019-08-20 20:27] LABS: Anion Gap 21 mmol/L (10-20); BUN (Urea Nitrogen) 15 mg/dL (8.4-25.7); CK (CPK) 906 U/L (30-200); Calc. Creatinine Clearance 87 mL/min (70-130); Calcium 8.6 mg/dL (7.8-10.44); Carbon Dioxide 18 mmol/L (22-29); Chloride 100 mmol/L (98-107); Estimated GFR-MDRD Greater than 90; Glucose 193 mg/dL (70-105); Magnesium 2.3 mg/dL (1.6-2.6); Phosphorus 3.5 mg/dL (2.3-4.7); Potassium 4.4 mmol/L (3.5-5.1); Sodium 135 mmol/L (136-145)
--- NOTE | 2019-08-20 20:41 | RAD ---
EXAM: CHEST ONE VIEW HISTORY: Tube placement COMPARISON: 08/19/2019 FINDINGS: There has been interval placement of an endotracheal tube with tip overlying the T2 vertebral body an d well above the level of the robert. Cardiac silhouette and bronchovascular markings are accentuated by shallow depth inspiration and portable technique. Linear parenchymal densities are see n at the right lung base which again may be related to subsegmental atelectasis. Mild linear scar versus atelectasis is present in the lingula. No consolidation or pleural fluid is identified. Gaseou s distention of loops of bowel in the upper abdomen are seen. Osteopenia is present. IMPRESSION: Interval 1. Placement of endotracheal tube which is above the level of thoracic inlet and overlies the T2 vert ebral body. 2. Interstitial and linear patchy density right lung base which may be attributable to subsegmental a telectasis. Pneumonitis cannot be entirely excluded. Continued follow-up is recommended.
[2019-08-20 20:47] LABS: CO2 Tension 39.9 mmHg (35.0-45.0); Calcium, Ionized (arterial) 1.17 mmol/L (1.12-1.30); Carboxyhemoglobin (COHb) 0.4 gm% (0.0-3.0); Hemoglobin (Hb) 12.8 g/dL (14.0-18.0); O2 Tension (PaO2), arterial 169.2 mmHg (> 80.0); Potassium - ABG Lab 3.59 mmol/L (3.70-5.30)
[2019-08-20 20:50] LABS: ALV-art Gradient 205.725 (0-20); Puncture Site LRA
[2019-08-20 20:59] LABS: CKMB 5.1 ng/mL (0-6.6)
[2019-08-20 21:07] LABS: Lactic Acid 8.7 mmol/L (0.5-2.2)
[2019-08-20] MEDS ORDERED: fentaNYL Citrate/PF 2,000 MCG in Sodium Chloride 0.9% 60 ML IV SCH (21:35)
[2019-08-20] MEDS ORDERED: Propofol 1,000 MG/100 ML VIAL IV PRN (21:35)
[2019-08-20] MEDS ORDERED: Propofol BOLUS 1,000 MG/100 ML VIAL IV PRN (21:35)
[2019-08-20] MEDS ORDERED: Fentanyl BOLUS 250 ML IVPB PRN (21:35)
[2019-08-20] MEDS ORDERED: DISCONTINUE PREVIOUS NARCOTIC PAIN MEDICATIONS AND BENZODIAZEPINES FS SCH (21:35)
[2019-08-20] MEDS ORDERED: Lorazepam 2 MG/ML VIAL SLOW IVP PRN (21:35)
[2019-08-20] MEDS ORDERED: Amantadine HCl 100 mg Capsule PO SCH (22:15)
--- NOTE | 2019-08-20 22:41 | CT ---
CT HEAD WITHOUT IV CONTRAST COMPARISON: 08/18/2019 HISTORY: Altered mental status TECHNIQUE: Axial CT imaging at 5 mm intervals from vertex through skull base without contrast FINDINGS: Mild cerebral volume loss is again seen. Previously noted very tiny hyperdensity overlying the right temporal/occipital convexity is again seen and unchanged. This was also seen on study of 04/20/2018. There is no evidence of an acute infarction, hemorrhage, mass effect, or midline shift. The ventricul ar system is normal in size, shape, and position. Trace mucosal thickening in the left sphenoid sinus with tiny air-fluid level in the right maxillary antrum is present. Mild mucosal thickening is seen in the ethmoidal air cells. Endotracheal tube and nasogastric tubes are seen in place. Visualized mastoid air cells are clear. Osseous structures appear intact.Minimal scalp soft tissue swelling left anterior frontal region is a gain seen. IMPRESSION: 1. No acute intracranial abnormalities demonstrated. 2. Tiny hyperdensity overlying the right temporal occipital convexity. 3. Endotracheal tube and nasogastric tubes remain in place, and there is also mucosal thickening in t he paranasal sinuses which may related to the intubation.
--- NOTE | 2019-08-20 22:54 | CT ---
CT ANGIOGRAM THORAX WITH IV CONTRAST AND 3-D RECONSTRUCTIONS CLINICAL INDICATION: Shortness of breath and chest pain COMPARISON: CT thorax on 04/20/2018 FINDINGS: Pulmonary arteries: No filling defects are seen in the pulmonary arteries to suggest a pulmonary embo jazmin. Aorta: Normal in caliber. Lungs: There is a wedge-shaped area of consolidation seen in the right lower lobe worrisome for pneum onia versus aspiration pneumonitis. Additional bibasilar parenchymal lung changes are seen which also may be related to infectious process and/or volume loss. No pleural effusion is present. Small a mount of debris is seen within the distal right trachea and right mainstem bronchus. Mediastinum: Endotracheal tube is noted in place which is well above the level of the robert and also below the level of the thoracic inlet. Nasogastric tube is noted in place with the tip in the body of the stomach. No enlarged lymph nodes are seen within the mediastinum by CT size criteria. Thyroid gland: There is a hypodense nodule seen in the right lobe of the thyroid gland. This was also seen on prior CT examination better visualized on CT cervical spine on 04/20/2018. Osseous structures: There is a stable degree of height loss involving a wedge-shaped compression frac ture of the T5 vertebral body with at least 50% loss of height anteriorly. There is a mild compression fracture involving the superior endplate of the T4 vertebral body of indeterminate age. T here is also a more severe wedge-shaped compression fracture of the T7 vertebral body of indeterminate age. There is approximately 75% loss of height anteriorly involving this fracture. Ther e is exaggerated kyphosis of the thoracic spine. Chest wall: Incompletely imaged. Upper abdomen: Gaseous distention of the transverse colon and splenic flexure. IMPRESSION: 1. Right lower lobe pneumonia versus aspiration with additional bibasilar parenchymal lung changes wh ich also may be related to infectious process or aspiration and/or volume loss. Follow-up to resolution is recommended. 2. Small amount of debris in the posterior aspect right mainstem bronchus as well as in the trachea w hich could be related to secretions or aspirated material. 3. No CT evidence of pulmonary embolus. 4. Stable degree of height loss involving the T5 vertebral body compression fracture with compression fractures of the superior endplate T4 vertebral body with more severe compression fracture T7 vertebral body which were not seen on study in 2019, and the exact ages are difficult to determine on this exam. 5. Endotracheal tube noted in place but is above the level of the thoracic inlet. 6. Stable right thyroid hypodense nodule.
[2019-08-20] MEDS: Thiamine HCl 200 MG/2 ML VIAL SLOW IVP SCH (23:57)
[2019-08-21] MEDS ORDERED: Sodium Bicarb 50 MEQ/50 ML Abboject 8.4% SYRINGE ONE (00:06)
[2019-08-21] MEDS: Bacitracin 1 PK TOP SCH ×4 (00:07→20:54)
[2019-08-21] MEDS: Senokot S 8.6-50 MG TAB PO SCH ×3 (00:07→20:53)
[2019-08-21] MEDS: Oxazepam 10 MG CAP PO SCH ×7 (00:07→20:53)
[2019-08-21] MEDS: Acetaminophen 325 MG TAB PO SCH ×5 (00:07→23:32)
[2019-08-21] MEDS ORDERED: Sodium Bicarb 50 MEQ/50 ML Abboject 8.4% SYRINGE IVP SCH (00:15)
--- NOTE | 2019-08-21 02:29 | OP ---
DATE OF PROCEDURE: 08/20/2019 PREOPERATIVE DIAGNOSES: 1. Acute respiratory failure. 2. Status post endotracheal intubation with a high-riding endotracheal tube as a result of a tortuous trachea. POSTOPERATIVE DIAGNOSES: 1. Acute respiratory failure. 2. Status post endotracheal intubation with a high-riding endotracheal tube as a result of a tortuous trachea. PROCEDURE PERFORMED: Diagnostic and therapeutic bronchoscopy. INDICATIONS FOR PROCEDURE: A 59-year-old man was emergently intubated for acute hypoxemic respiratory failure. Chest x-ray confirmed endotracheal tube, which was high-riding in the thoracic inlet. The trachea was noted to be quite tortuous. The decision was made to perform a diagnostic bronchoscopy to determine the point of obstruction and then to guide advancement of the endotracheal tube. DESCRIPTION OF PROCEDURE: The patient was placed in supine position, on full mechanical ventilator support. Fiberoptic bronchoscope was introduced through the recently placed endotracheal tube and advanced to visualize the point of tortuous trachea with an acute bend. We will be able to manipulate the tip of the bronchoscope passed this area, advancing this to visualize the robert. The endotracheal tube was then advanced over the bronchoscope to be positioned approximately 2 cm above the robert. It was taped at 26 cm at the lip. The patient tolerated procedure without any apparent complications. Bronchoscope was directed to the right upper, bronchus intermedius, and finally right lower lobes. Minor thick secretions were evacuated under suction and sent for microbiology. The scope was advanced to the left upper and left lower lobes. There was no mucus plugging noted. The patient tolerated the procedure without any apparent complication and remained hemodynamically stable following completion of procedure. Job ID: [id number]
[2019-08-21 02:33] LABS: Amphetamine Not Detected (NotDetected); Barbiturates Screen Detected (NotDetected); Benzodiazepine Screen Not Detected (NotDetected); Cocaine Metabolite Screen Not Detected (NotDetected); Medtox Control Line Valid? VALID (VALID); Medtox Reader # READER 4; Methadone Not Detected (NotDetected); Methamphetamine Not Detected (NotDetected); Opiate Screen Detected (NotDetected); Oxycodone Screen Not Detected (NotDetected); Phencyclidine (PCP) Not Detected (NotDetected); THC/Cannabinoid Screen Not Detected (NotDetected); Tricyclic Screen Not Detected (NotDetected)
[2019-08-21 03:37] LABS: #Eosinphils 0.1 thou/uL (0.0-0.7); #Monocytes 0.4 thou/uL (0.11-0.59); #Neutrophils 7.2 thou/uL (1.40-6.50); %Basophils 0.2 % (0.0-1.0); %Eosinophils 1.2 % (0.0-10.0); %Lymphocytes 11.2 % (21.0-51.0); %Neutrophils 83.4 % (42.0-75.0); Hemoglobin 12.4 g/dL (14.0-18.0); Mean Corpuscular HGB CONC 35.5 g/dL (32.0-36.0); Mean Corpuscular Hemoglobin 34.7 pg (27.0-31.0); Mean Corpuscular Volume 97.6 fL (78.0-98.0); Mean Platelet Volume 8.7 fL (7.4-10.4); Platelet Count 181 thou/uL (130-400); RBC Distribution Width 13.2 % (11.5-14.5); Red Blood Cell (RBC) Count 3.58 mill/uL (4.70-6.10); White Blood Cell (WBC) Count 8.7 thou/uL (4.8-10.8)
[2019-08-21 03:45] LABS: INR-International Normal Ratio 1.4; PTT 24.8 sec (22.9-36.1); Prothrombin Time 17.4 sec (12.0-14.7)
[2019-08-21 04:05] LABS: Lactic Acid 1.7 mmol/L (0.5-2.2)
[2019-08-21 04:17] LABS: Anion Gap 12 mmol/L (10-20); BUN (Urea Nitrogen) 13 mg/dL (8.4-25.7); CK (CPK) 633 U/L (30-200); Calc. Creatinine Clearance 109 mL/min (70-130); Calcium 7.9 mg/dL (7.8-10.44); Carbon Dioxide 23 mmol/L (22-29); Chloride 106 mmol/L (98-107); Estimated GFR-MDRD Greater than 90; Glucose 102 mg/dL (70-105); Magnesium 2.2 mg/dL (1.6-2.6); Phosphorus 1.1 mg/dL (2.3-4.7); Potassium 3.2 mmol/L (3.5-5.1); Sodium 138 mmol/L (136-145)
[2019-08-21 04:18] LABS: ALT (SGPT) 34 U/L (8-55); AST (SGOT) 42 U/L (5-34); Albumin 2.7 g/dL (3.5-5.0); Alkaline Phosphatase 68 U/L (40-110); Bilirubin, Direct 0.2 mg/dL (0.1-0.3); Bilirubin, Total 0.7 mg/dL (0.2-1.2)
[2019-08-21 04:23] LABS: Syphilis Antibody Index 0.01 S/CO (<1.00 Non-Reactive)
[2019-08-21 04:24] LABS: Syphilis Antibody Nonreactive (Nonreactive)
--- NOTE | 2019-08-21 04:35 | PRG ---
DATE OF SERVICE: 08/20/2019 SUBJECTIVE: This is a 59-year-old gentleman, status post mechanical fall on telemetry unit. Earlier today he had an episode of SVT, in which he converted with one dose of adenosine. He started to be become restless and pulled out his hurd, it was replaced by the nurse and no blood was reported. A Code Green was called this evening as the patient again became tachycardic with altered mental status and excessive tremors that progressed to involuntary muscle contractions in all extremities. The patient was able to make eye contact and speak during the involuntary movements. Tardive dyskinesia present including intermittent involuntary upward eye movement, muscle spasms, rolling motion and chewing of the tongue. The patient was sinus tachycardia on the crown buffer with out ectopy and Spo2 100% on 2 L nasal cannula. The patient was given Ativan with no change. The patient was also given Benadryl 25 mg IV with no change. An additional dose of Ativan was given with very minimal change. Valium 5 mg IV given, which seemed to help some. The patient was then placed on a non-rebreather, but still had excessive uncontrolled movements. Decision was made to move the patient to the critical care unit and prepare for intubation for airway protection and continued sedation so a CTA could be obtained to rule out a pulmonary embolism and head CT due to change in mental status. The patient had severe dry mucous membranes and appeared flushed. An oral temp was obtained, but was normal and then a rectal temp was obtained, which was elevated. Ice packs were applied to the groin and axilla. RT at bedside, the patient was hyperoxygenated and on all monitors. The patients Spo2 was 100%. The patient was given etomidate 20 mg and rocuronium 70 mg for induction. An additional 5 mg of Valium was given prior to induction of medications as the patient was still having excessive movements. A video laryngoscope was used. Glottis was visualized, and an 8.0 ET tube was placed through the vocal cord. Balloon was inflated, positive color metric change noted. The patient had bilateral breath sounds and no epigastric sounds. ET tube was secured at 24 cm at the teeth. A chest x-ray was obtained, and the tube was above the robert. The tube was advanced another centimeter. The patient's SpO2 was maintained at 98% to 100%. The patient was resuscitated with normal saline. The patient did have a drop in blood pressure after intubation, but quickly returned to normal after normal saline bolus. OBJECTIVE: GENERAL: Middle aged male, in severe distress due to excessive rigid movements, febrile. The patient was able to protect his airway, the patient was alert during excessive movements and was able to speak, but difficult to understand. HEENT: Right eyebrow laceration with no signs of infection, healing, abrasion to the tongue as the patient had excessive chewing motion of the tongue. No active bleeding. RESPIRATORY: Equal chest rise and fall, bilateral breath sounds clear. CARDIAC: Regular rate and regular rhythm, tachycardic, no pedal edema, no murmurs. ABDOMEN: Soft, nontender, and nondistended. EXTREMITIES: Moves all extremities, rigid, uncontrolled movements, tardive dyskinesia. LABORATORY DATA: WBC 12.5, RBC 4.33, hemoglobin 14.5, hematocrit 42.8, MCV 98.6 , MCH 33.3, platelets 252. APTT 20.1. Sodium 135, chloride 100, CO2 of 18, anion gap 21, BUN 15, creatinine 0.85, estimated GFR greater than 90, glucose 193. Lactate 12.1, repeat 8.7; calcium 8.6; phosphorus 3.5; magnesium 2.3. CK 906, CK-MB 5.1. Troponin 0.062, repeat 0.262 and procalcitonin 0.10. Urinalysis, dark luis urine, positive for protein, positive ketones, 1+ bacteria. Urine sent for culture. DIAGNOSTICS: CTA chest thorax, impression, right lower lobe pneumonia versus aspiration with additional bibasilar parenchymal lung changes, which also may be related to infectious process or aspiration and/or volume loss. No evidence of pulmonary embolus. Endotracheal tube noted in place, but is above the level of the thoracic inlet, stable right thyroid hypodense nodule. Brain CT, impression, no acute intracranial abnormalities. Chest x-ray, impression, interstitial linear patchy density right lung base, which may be attributed to subsegmental atelectasis. Pneumonitis cannot be entirely excluded. 12-lead EKG, impression, normal sinus rhythm, rate 90, no ectopy, no T-wave for ST-segment abnormalities. IMPRESSION: 1. Status post mechanical fall with delayed presentation. 2. Left femoral neck fracture, pending surgical repair. 3. Rhabdomyolysis. 4. Supraventricular tachycardia, resolved. 5. Hypokalemia and hyponatremia. 6. Acute dystonia and tardive dyskinesia, likely due to alcohol withdrawal. 7. Lactic acidosis. 8. Possible aspiration. 9. Acute respiratory failure. 10. Elevated troponin, likely demand ischemia. 11. History of migraine headaches. PLAN: Resuscitate the patient with IV fluids. Continue to monitor urinary output. Correct electrolytes as needed. Bronchoscopy by Dr. Almanza for high-riding endotracheal tube as respiratory therapy was unable to pass a suction catheter due to tortuous trachea. Repeat chest x-ray and ABG in the morning. We will start the patient on Serax, folic acid, and thiamine. Sedation with fentanyl and propofol. We will trend troponins. We will consult Cardiology in the morning if troponin continues to trend up. If the patient's electrolytes and vitals are stable, the patient can most likely go to the OR tomorrow with ortho, also pending troponins. Cano culture. Repeat labs, ABG and chest Xray in the morning. The plan was discussed with Dr. Almanza. Job ID: [id number] [facility]
[2019-08-21] MEDS ORDERED: Potassium Phosphate 30 MMOL in Sodium Chloride 0.9% 500 ML IVPB SCH (05:30)
[2019-08-21] MEDS: NS 0.9% w/ 40 MEQ KCL 1,000 ML IV SCH ×2 (06:25→17:41)
[2019-08-21 07:00] VITALS: BP 100/67
[2019-08-21 07:22] LABS: Actual Bicarbonate (HCO3a) 17.4 mEq/L (22-28); Base Excess (BEa) -5.7 mEq/L (-2.0 to +3.0); CO2 Tension 27.5 mmHg (35.0-45.0); Calcium, Ionized (arterial) 1.18 mmol/L (1.12-1.30); Carboxyhemoglobin (COHb) 0.6 gm% (0.0-3.0); Hemoglobin (Hb) 13.4 g/dL (14.0-18.0); O2 Tension (PaO2), arterial 126.2 mmHg (> 80.0); Potassium - ABG Lab 3.36 mmol/L (3.70-5.30); pH, Arterial 7.42 (7.35-7.45)
[2019-08-21 07:23] LABS: Puncture Site RRA
[2019-08-21 07:24] LABS: ALV-art Gradient 124.625 (0-20)
[2019-08-21] MEDS ORDERED: Sodium Chloride 0.9% (PF) 10 ML VIAL FS PRN (08:38)
[2019-08-21] MEDS ORDERED: Heparin 25,000 units/D5W 500 ML IVPB SCH (08:45)
[2019-08-21 08:54] LABS: Troponin I 0.133 ng/mL (< 0.028)
[2019-08-21] MEDS ORDERED: Amantadine HCl 100 mg Capsule PO SCH (09:00)
--- NOTE | 2019-08-21 10:09 | RAD ---
PORTABLE CHEST 1 VIEW: Date: 08/21/2019 Time: 0518 hours HISTORY: Respiratory failure. COMPARISON: Previous day. FINDINGS/IMPRESSION: Interval placement of an endotracheal tube is seen with tip at the level of the clavicular heads. A n asogastric tube has also been placed and can be traced into the stomach. There is mild subsegmental a telectatic change at the right lung base. No pneumothoraces or large effusions are seen. POS: [facility]
[2019-08-21] MEDS: Polyethylene Glycol 3350 17 GM Packet PO SCH (11:12)
[2019-08-21] MEDS: Heparin 10,000 UNITS/ 10 ML VIAL SLOW IVP SCH ×2 (11:23→19:45)
[2019-08-21] MEDS: Potassium Chloride 20 MEQ TAB PO SCH (12:36)
[2019-08-21] MEDS: Folic Acid 1 MG TAB PO SCH (12:39)
[2019-08-21] MEDS: Pantoprazole 40 MG VIAL IVP SCH (12:39)
[2019-08-21] MEDS ORDERED: Adenosine 6 MG/2 ML VIAL ONE (14:11)
--- NOTE | 2019-08-21 14:28 | EKG ---
Test Reason : PREOP Blood Pressure : / mmHG Vent. Rate : 101 BPM Atrial Rate : 101 BPM P-R Int : 138 ms QRS Dur : 094 ms QT Int : 386 ms P-R-T Axes : 025 -08 018 degrees QTc Int : 500 ms Sinus tachycardia Septal infarct (cited on or before 20-APR-2018) Possible Lateral infarct (cited on or before 20-APR-2018) Possible Inferior infarct (cited on or before 20-APR-2018) Abnormal ECG When compared with ECG of 20-APR-2018 11:43, Premature supraventricular complexes are no longer Present Questionable change in initial forces of Septal leads Nonspecific T wave abnormality, improved in Inferior leads Nonspecific T wave abnormality no longer evident in Lateral leads Confirmed by ED WOLFF (2) on 08/21/2019 2:27:52 PM Referred By: MEL Confirmed By:ED WOLFF
--- NOTE | 2019-08-21 15:25 | PRG ---
DATE OF SERVICE: 08/21/2019 SUBJECTIVE: Mr. Lin is a 59-year-old man, who was admitted recently following a ground level fall, where he was down for 3 days prior to receiving help. He suffered a hip fracture, which is pending operative repair. Although the patient denied alcoholism, it was obvious that he went into acute alcohol withdrawal yesterday. Additional history from his family reveals the patient was a heavy alcoholic before, who intimated family that he has quit drinking. It was obvious though that he was in alcohol withdrawal yesterday, resulting in acute respiratory failure, intubated. This morning, he is on full mechanical ventilator support, adequately sedated with propofol and fentanyl. When the sedation was turned off, the patient moves all his extremities and follows commands. We have placed him on Serax, thiamine, and folate since yesterday. Urinary output is adequate. OBJECTIVE: VITAL SIGNS: This morning, include blood pressure 107/77, pulse 81, respiratory rate 15, maximum temperature in last 24 hours is 98.9 degrees Fahrenheit, oxygen saturation 100% on 40% FiO2. HEENT: Pupils equally round and reactive to light bilaterally. NECK: He has no jugular venous distention noted. HEART: Reveals regular rate and rhythm. No murmurs or gallops auscultated. LUNGS: Clear to auscultation bilaterally. Breathing, regular and nonlabored. ABDOMEN: Soft, nontender, and nondistended. NEUROLOGIC: Reveals no focal deficits present. IMAGING STUDIES: Note that he had CT scan of the brain obtained yesterday, was unremarkable for any acute pathology. CT scan of the chest, PE protocol was unremarkable for any pulmonary embolism. LABORATORY FINDINGS: Today include a CBC with 8700 white blood cells, down from 12,500 yesterday. Hemoglobin and hematocrit 12.4 and 35.0 respectively. Platelet count is 181,000. Arterial blood gas; pH 7.42, pCO2 is 28, pO2 is 126, base excess -5.7, ionized calcium is 1.18. Metabolic profile; sodium 138, potassium 3.2, chloride is 106, bicarb is 23, BUN 13, creatinine 0.68, glucose is 102. Lactic acid this morning is 1.7, this is marked improvement from a high 12.1 yesterday. CPK which was as high as 4998 on 08/17 and is now down to 633 today. Troponin I has been as high as 0.262 yesterday and down today to 0.133. IMPRESSION: 1. Acute respiratory failure, improving. 2. Acute ethanol withdrawal, resolved. 3. Acute hypokalemia. 4. Acute hypophosphatemia, phosphorus is 1.1. 5. Resolving traumatic rhabdomyolysis. 6. I doubt this patient had any acute coronary syndrome. I think the elevated troponin is probably a demand ischemia, which is hemodynamically insignificant. 7. Left femoral neck fracture, pending operative repair. PLAN: 1. The patient was successfully weaned to extubation. 2. Continue with prophylaxis against DTs. 3. Correct abnormal electrolytes. 4. The patient is certainly hemodynamically stable to proceed to surgery tomorrow with Orthopedic Surgery. 5. We will initiate physical and occupational therapy. 6. Above findings and plan discussed with the patient who indicates understanding of information given. 7. I have answered his questions. Job ID: [id number]
[2019-08-21] MEDS ORDERED: Metoprolol Tartrate 25 MG TAB PO SCH (17:00)
--- NOTE | 2019-08-21 17:17 | CON ---
DATE OF CONSULTATION: REASON FOR CONSULTATION: SVT and preop clearance. HISTORY OF PRESENT ILLNESS: Mr. Lin is a 59-year-old gentleman, who recently fell. He states he was on the ground for 3 days. He has some underlying confusion, so the history is somewhat difficult. He denies chest pain, pressure, or associated symptoms. He has no previous history of underlying coronary artery disease. He has developed intermittent SVT. During my first visit with Mr. Lin, I did have to give him adenosine 6 mg total for conversion back to sinus rhythm. PAST MEDICAL HISTORY: Migraine headaches. SURGICAL HISTORY: Hernia repair. ALLERGIES: NONE. HOME MEDICATIONS: None. SOCIAL HISTORY: No current tobacco or alcohol use. REVIEW OF SYSTEMS: Ten-point review of systems is reviewed and as above, otherwise negative. PHYSICAL EXAMINATION: VITAL SIGNS: Blood pressure 111/78, pulse 99, temperature afebrile. GENERAL: The patient is a pleasant gentleman in no acute distress, appears stated age. He does have some underlying confusion. HEAD, EYES, EARS, NOSE AND THROAT: Sclerae without icterus. Mouth: Moist mucous membranes, normal palate. NECK: No jugular venous distention. Carotid upstroke is brisk. No bruits bilaterally. LUNGS: Clear to auscultation. HEART: Regular rate and rhythm, normal S1 and S2. ABDOMEN: Soft, nontender, nondistended. EXTREMITIES: No edema. PERTINENT LABORATORY DATA: Hemoglobin 12.4, hematocrit 35. Creatinine 0.68. CK 633. AST 42, total protein 5, albumin 2.7. Troponin 0.133. Echo Doppler, which I personally reviewed, overall LVEF at the lower limits of normal. From my review, his right ventricle appears mildly enlarged, not severely enlarged. IMPRESSION: 1. Preoperative clearance. 2. Supraventricular tachycardia. 3. Recent hip fracture. RECOMMENDATIONS: I did convert Mr. Lin to sinus rhythm after 6 mg of adenosine at bedside. I would load Mr. Lin with digoxin 0.25 mg one p.o. q.6 hours x total doses of 4. We will also add metoprolol 12.5 mg one p.o. b.i.d. The patient felt to be at low risk for complications from a CV standpoint. The benefits outweigh the risks on proceeding. Job ID: [id number]
--- NOTE | 2019-08-21 17:50 | EKG ---
Test Reason : Blood Pressure : / mmHG Vent. Rate : 090 BPM Atrial Rate : 090 BPM P-R Int : 132 ms QRS Dur : 092 ms QT Int : 388 ms P-R-T Axes : 029 -08 000 degrees QTc Int : 474 ms Normal sinus rhythm Cannot rule out Inferior infarct (cited on or before 20-APR-2018) Abnormal ECG When compared with ECG of 20-AUG-2019 15:00, (Unconfirmed) Questionable change in initial forces of Inferior leads Confirmed by GEM BOGGS, DR. SGentry (4) on 08/21/2019 5:49:58 PM Referred By: NIVIA NAIDU NP Confirmed By:DR. Betsy RABAGO MD
--- NOTE | 2019-08-21 17:55 | EKG ---
Test Reason : CONFIRMATION Blood Pressure : / mmHG Vent. Rate : 165 BPM Atrial Rate : 165 BPM P-R Int : 096 ms QRS Dur : 084 ms QT Int : 286 ms P-R-T Axes : 000 011 -23 degrees QTc Int : 473 ms Sinus tachycardia with short MN Nonspecific T wave abnormality Abnormal ECG When compared with ECG of 21-AUG-2019 01:35, (Unconfirmed) Vent. rate has increased BY 75 BPM Non-specific change in ST segment in Anterior leads Nonspecific T wave abnormality now evident in Anterior leads Confirmed by GEM BOGGS, . SGentry (4) on 08/21/2019 5:54:47 PM Referred By: MEL Confirmed By:DR. Betsy RABAGO MD
[2019-08-21] MEDS: Digoxin 0.25 MG TAB PO SCH ×2 (17:56→23:32)
[2019-08-21 19:53] LABS: Anion Gap 14 mmol/L (10-20); BUN (Urea Nitrogen) 12 mg/dL (8.4-25.7); Calc. Creatinine Clearance 114 mL/min (70-130); Calcium 8.4 mg/dL (7.8-10.44); Carbon Dioxide 24 mmol/L (22-29); Chloride 110 mmol/L (98-107); Estimated GFR-MDRD Greater than 90; Glucose 120 mg/dL (70-105); Magnesium 2.3 mg/dL (1.6-2.6); Phosphorus 3.6 mg/dL (2.3-4.7); Potassium 4.1 mmol/L (3.5-5.1); Sodium 144 mmol/L (136-145)
[2019-08-21] MEDS: Thiamine HCl 200 MG/2 ML VIAL SLOW IVP SCH (20:53)
[2019-08-21] MEDS: Cyclobenzaprine 10 MG TAB PO PRN (20:53)
[2019-08-21] MEDS: Acetaminophen/Codeine 30-300mg Tablet PO PRN (23:31)
--- NOTE | 2019-08-22 00:47 | PRG ---
DATE OF SERVICE: 08/21/2019 SUBJECTIVE: The patient was seen during evening rounds, resting comfortably in the critical care unit. The patient was extubated earlier today, and has been without any episodes of tremors or excessive movement. The patient did have an episode of SVT earlier today, in which he was converted with 6 of adenosine. The patient was started on metoprolol and digoxin per Cardiology. The patient's p.m. labs are within normal limits. No need to replace any electrolytes at this time. OBJECTIVE: VITAL SIGNS: Stable, afebrile. Urinary output is adequate for age and weight. PLAN: Repeat labs in the morning. Replace electrolytes as needed. Orthopedic Surgery plans to take the patient to the OR tomorrow for repair of his left displaced femoral neck fracture. Continue maintenance IV fluids. Discontinue the patient's heparin drip. Physical and Occupational Therapy to evaluate and treat postop. The patient's urinary culture, no growth at this time. Continue to monitor for SVT. Continue Serax for alcohol withdrawal. Job ID: [id number]
[2019-08-22] MEDS: Oxazepam 10 MG CAP PO SCH ×3 (01:52→09:53)
[2019-08-22 03:20] LABS: #Lymphocytes 0.4 thou/uL (1.20-3.40); #Monocytes 0.5 thou/uL (0.11-0.59); #Neutrophils 9.3 thou/uL (1.40-6.50); %Basophils 0.1 % (0.0-1.0); %Eosinophils 0.2 % (0.0-10.0); %Lymphocytes 4.2 % (21.0-51.0); %Monocytes 4.6 % (0.0-10.0); %Neutrophils 90.9 % (42.0-75.0); Hemoglobin 14.3 g/dL (14.0-18.0); Mean Corpuscular HGB CONC 34.3 g/dL (32.0-36.0); Mean Corpuscular Hemoglobin 33.8 pg (27.0-31.0); Mean Corpuscular Volume 98.5 fL (78.0-98.0); Mean Platelet Volume 8.4 fL (7.4-10.4); Platelet Count 201 thou/uL (130-400); RBC Distribution Width 13.6 % (11.5-14.5); Red Blood Cell (RBC) Count 4.23 mill/uL (4.70-6.10); White Blood Cell (WBC) Count 10.3 thou/uL (4.8-10.8)
[2019-08-22 03:40] LABS: Anion Gap 12 mmol/L (10-20); BUN (Urea Nitrogen) 12 mg/dL (8.4-25.7); Calc. Creatinine Clearance 119 mL/min (70-130); Calcium 8.3 mg/dL (7.8-10.44); Carbon Dioxide 26 mmol/L (22-29); Chloride 111 mmol/L (98-107); Estimated GFR-MDRD Greater than 90; Glucose 119 mg/dL (70-105); Magnesium 2.3 mg/dL (1.6-2.6); Phosphorus 3.3 mg/dL (2.3-4.7); Sodium 145 mmol/L (136-145)
[2019-08-22] MEDS: NS 0.9% w/ 40 MEQ KCL 1,000 ML IV SCH (04:27)
[2019-08-22] MEDS: Digoxin 0.25 MG TAB PO SCH ×2 (05:30→10:00)
[2019-08-22] MEDS: Acetaminophen 325 MG TAB PO SCH (05:30)
[2019-08-22] MEDS ORDERED: Vancomycin 1.5 GRAM/300 ML BAG 1.5 GM in Premix Bag 1 BAG IVPB SCH ×2 (07:15→07:30)
[2019-08-22] MEDS ORDERED: CEFAZOLIN 2 GM in Premix Bag 1 BAG IVPB SCH ×2 (07:15→14:00)
[2019-08-22] MEDS ORDERED: Tranexamic Acid 1,000 MG in Sodium Chloride 0.9% 250 ML 250 ML IVPB SCH (07:30)
--- NOTE | 2019-08-22 07:52 | PDOC.CPN ---
- Subjective Date: 08/22/19 - Objective Allergies/Adverse Reactions: Allergies Allergy/AdvReac Type Severity Reaction Status Date / Time No Known Allergies Allergy Verified 08/19/19 04:29 Visit Medications: Current Medications Acetaminophen (Tylenol) 325 mg PO Q6HR [facility] Last Admin: 08/22/19 05:30 Dose: 325 mg Acetaminophen/Codeine Phosphate (Tylenol #3) 1 tab PO Q6H PRN PRN Reason: Moderate Pain (4-6) Last Admin: 08/21/19 17:26 Dose: 1 tab Acetaminophen/Codeine Phosphate (Tylenol #3) 2 tab PO Q6H PRN PRN Reason: Severe Pain (7-10) Last Admin: 08/21/19 23:31 Dose: 2 tab Albuterol/Ipratropium (Duoneb) 3 ml NEB Q4H PRN PRN Reason: Wheezing Bacitracin (Bacitracin) 1 pk TOP TID [facility] Last Admin: 08/21/19 20:54 Dose: 1 pk Cyclobenzaprine HCl (Flexeril) 10 mg PO TID PRN PRN Reason: Muscle Spasm Last Admin: 08/21/19 20:53 Dose: 10 mg Dextrose/Water (Dextrose 50%) 25 gm SLOW IVP PRN PRN PRN Reason: Hypoglycemia Digoxin (Lanoxin) 0.25 mg PO Q6H [facility] Stop: 08/22/19 11:01 Last Admin: 08/22/19 05:30 Dose: 0.25 mg Folic Acid (Folvite) 1 mg PO DAILY [facility] Last Admin: 08/21/19 12:39 Dose: 1 mg Glucagon (Glucagon) 1 mg IM PRN PRN PRN Reason: Hypoglycemia Hydralazine HCl (Apresoline) 10 mg SLOW IVP Q4H PRN PRN Reason: SBP > 170 or DBP > 100 Dextrose/Water (D5w) 1,000 mls @ 0 mls/hr IV .Q0M PRN PRN Reason: Hypoglycemia Potassium Chloride/Sodium Chloride (Ns 0.9% W/ 40 Meq Kcl) 1,000 mls @ 100 mls/ hr IV .Q10H [facility] Last Admin: 08/22/19 04:27 Dose: 1,000 mls Cefazolin Sodium/Dextrose 2 gm (/ Device) 50 mls @ 100 mls/hr IVPB ONCALL-OR NATASHA Tranexamic Acid 1,000 mg/ (Sodium Chloride) 260 mls @ 32.5 mls/hr IVPB WILLCALL [facility] Stop: 08/23/19 21:00 Vancomycin HCl 1.5 gm/ Device 300 mls @ 200 mls/hr IVPB WILLCALL [facility] Metoprolol Tartrate (Lopressor) 25 mg PO BID [facility] Ondansetron HCl (Zofran) 4 mg IVP Q6H PRN PRN Reason: Nausea Last Admin: 08/19/19 18:14 Dose: 4 mg Oxazepam (Serax) 20 mg PO Q4HR [facility] Last Admin: 08/22/19 05:30 Dose: 20 mg Pantoprazole Sodium (Protonix) 40 mg IVP DAILY [facility] Last Admin: 08/21/19 12:39 Dose: 40 mg Polyethylene Glycol (Miralax) 17 gm PO DAILY [facility] Last Admin: 08/21/19 11:12 Dose: Not Given Promethazine HCl (Phenergan) 12.5 mg IM Q4H PRN PRN Reason: Nausea Senna/Docusate Sodium (Senokot S) 2 tab PO BID [facility] Last Admin: 08/21/19 20:53 Dose: 2 tab Sodium Chloride (Flush - Normal Saline) 10 ml IVF PRN PRN PRN Reason: Saline Flush Sodium Chloride (Normal Saline Pf) 10 ml FS PRN PRN PRN Reason: RECONSTITUTION Thiamine HCl (Thiamine Hcl) 100 mg SLOW IVP 2100 [facility] Last Admin: 08/21/19 20:53 Dose: 100 mg Vital Signs & Weight: Vital Signs Temp Pulse Pulse Ox 08/22/19 05:30 96 08/22/19 05:00 98.3 F 08/21/19 23:32 96 08/21/19 23:00 98.2 F 08/21/19 20:00 98 Weight 146 lb 8 oz - Physical Exam General: no apparent distress Neck: no masses, no bruit Cardiac: regular rate, regular rhythm Lungs: normal exam Neuro: grossly intact - Labs Result Diagrams: 08/22/19 02:35 08/22/19 02:35 Troponin/CKMB CK-MB (CK-2) 5.1 ng/mL (0-6.6) 08/20/19 19:48 Troponin I 0.133 ng/mL (< 0.028) H 08/21/19 08:23 - Assessment/Plan Assessment/Plan: SVT Pulmonary HTN Preop clearance for hip surgery Pt rhythm stable on BB and digoxin Increase BB Pt felt to be low risk for surgery EF at the lower limit of normal
[2019-08-22] MEDS ORDERED: Metoprolol Tartrate 25 MG TAB PO SCH (09:00)
[2019-08-22] MEDS ORDERED: Fentanyl 100 MCG/2 ML VIAL ONE ×2 (09:12→10:47)
[2019-08-22] MEDS ORDERED: Fentanyl 100 MCG/2 ML VIAL SLOW IVP SCH (09:45)
[2019-08-22] MEDS: Bacitracin 1 PK TOP SCH (09:53)
[2019-08-22] MEDS: Polyethylene Glycol 3350 17 GM Packet PO SCH (09:53)
[2019-08-22] MEDS: Metoprolol Tartrate 25 MG TAB PO SCH ×2 (09:53→10:01)
[2019-08-22] MEDS: Folic Acid 1 MG TAB PO SCH (09:53)
[2019-08-22] MEDS: Senokot S 8.6-50 MG TAB PO SCH (09:54)
[2019-08-22] MEDS: Pantoprazole 40 MG VIAL IVP SCH (09:58)
[2019-08-22] MEDS ORDERED: diphenhydrAMINE 50 MG/ML VIAL IM PRN (10:15)
[2019-08-22] MEDS ORDERED: Naloxone HCl 0.4 mg/ml Vial IVP PRN (10:15)
[2019-08-22] MEDS ORDERED: fentaNYL Citrate/PF 500 MCG, Bupivacaine 10 ML in Sodium Chloride 0.9% 80 ML EPIDURAL SCH (10:15)
[2019-08-22] MEDS ORDERED: diphenhydrAMINE 50 MG/ML VIAL IVP PRN (10:15)
[2019-08-22] MEDS ORDERED: diphenhydrAMINE 25 MG CAP PO PRN (10:15)
[2019-08-22] MEDS ORDERED: Promethazine HCl 25 MG SUPP PR PRN (10:15)
[2019-08-22] MEDS ORDERED: Hydrocerin (Eucerin) Cream 120 gm Jar TOP PRN (10:15)
[2019-08-22] MEDS ORDERED: Ondansetron PF 4 MG/2 ML Vial IVP PRN (10:15)
[2019-08-22] MEDS ORDERED: Zolpidem Tartrate 5 MG TAB PO PRN (10:15)
[2019-08-22] MEDS ORDERED: HYDROcodone/Acetaminophen 5/325 mg Tablet PO PRN ×2 (10:15)
[2019-08-22] MEDS ORDERED: Bupivacaine 0.25% 10 ML VIAL EPIDURAL PRN (10:15)
[2019-08-22] MEDS ORDERED: Promethazine HCl 25 MG/ML VIAL IM PRN (10:15)
[2019-08-22] MEDS ORDERED: Naloxone HCl 0.4 mg/ml Vial IV PRN (10:15)
[2019-08-22 10:34] LABS: INR-International Normal Ratio 1.1; PTT 28.4 sec (22.9-36.1); Prothrombin Time 14.4 sec (12.0-14.7)
[2019-08-22] MEDS ORDERED: Albumin 5% 500 ML ONE (11:26)
[2019-08-22] MEDS ORDERED: Phenylephrine 10 MG/ML VIAL ONE (11:33)
[2019-08-22 11:45] VITALS: TEMP 98.4
[2019-08-22] MEDS ORDERED: Ketorolac Tromethamine 30 MG/ML VIAL IVP SCH (12:00)
[2019-08-22] MEDS ORDERED: Tranexamic Acid 1,000 MG/10 ML VIAL ONE (12:04)
[2019-08-22] MEDS ORDERED: Sodium Chloride 0.9% 100 ML ONE (12:04)
[2019-08-22] MEDS ORDERED: Vancomycin 1.5 GRAM/300 ML BAG ONE (12:04)
[2019-08-22] MEDS ORDERED: Lidocaine 1.5% w/Epi 1:200K 30 ML VIAL (Epid Use) ONE (12:08)
[2019-08-22] MEDS ORDERED: PROPOFOL 200 MG/20 ML VIAL ONE (12:08)
[2019-08-22] MEDS ORDERED: Rocuronium Bromide 10 MG/ML (10ML VIAL) ONE (12:08)
[2019-08-22] MEDS ORDERED: Ondansetron PF 4 MG/2 ML Vial ONE (12:08)
[2019-08-22] MEDS ORDERED: Lidocaine 1% PF 5 ML VIAL ONE (12:08)
--- NOTE | 2019-08-22 13:26 | OP ---
DATE OF PROCEDURE: 08/22/2019 This is Bowen Townsend PA-C dictating a report for Jr Sorto MD. ANESTHESIA: PREOPERATIVE DIAGNOSIS: Left hip femoral neck fracture with varus displacement. POSTOPERATIVE DIAGNOSIS: Left hip femoral neck fracture with varus displacement. PROCEDURE: Press-fit left total hip arthroplasty for fracture treatment. GRANITE FABRICATOR: Bowen Townsend PA-C COMPONENTS USED: [employer] Trident II Tritanium 54-mm Press-Fit acetabular shell with a size 7 Accolade II Press-Fit hip stem, 10-degree polyethylene fixed bearing insert, and a ceramic V40 36-mm in diameter femoral head with a -5 neck length. ESTIMATED BLOOD LOSS: 100 mL. SPECIMENS: None. DRAINS: None. COMPLICATIONS: None. COUNTS: Correct. FINDINGS: Femoral neck fracture as described on radiograph. INPUT: 2000 mL of crystalloid and 500 mL of colloid in the form of albumin. OUTPUT: Less than 100. The patient preoperatively also had approximately 650 mL of dark fluid of stomach contents removed via nasogastric tube. INDICATIONS FOR SURGERY: Gunner is a 59-year-old male who fell and broke his left femoral neck and had a difficult course preoperatively due to suspected alcohol withdrawal, possible encephalopathy, by then optimized for surgery to undergo a total hip arthroplasty for fracture treatment of left hip. PROCEDURE IN DETAIL: After informed consent was obtained in the preoperative holding area, the patient was taken to the operative suite where general anesthesia was induced. The patient was then positioned in the lateral decubitus position. The hip was then prepped and draped in usual sterile fashion. The patient received preoperative antibiotics. Prior to incision, time-out was called and all members of the surgical team agreed upon site, surgeon, and patient. After this, a longitudinal incision was made directly over the trochanter, noted by palpation extending 2 fingerbreadths above and below the trochanter. The deeper subcutaneous layer was undermined with Bovie electrocautery. The iliotibial band was encountered and incised sharply and the plane below this was developed bluntly. A Charnley retractor was placed to hold this opened. The lateral aspect of the trochanter and the abductor muscles were encountered and then reflected anteriorly off the trochanter using Bovie electrocautery. Once this was completed, the anterior capsule was then encountered and identified and copious capsulotomy was carried out, exposing the femoral neck and head. Dislocation maneuver was then performed and an in situ provisional neck cut was then made using the oscillating saw. After the saw was used to make the neck cut, the electric corkscrew was then used to remove the fractured femoral head. Attention was then turned to acetabular preparation. Sequential reaming was carried out up to the appropriate diameter and a trial was then malleted into place with good firm resistance and no pullout. The permanent acetabular shell was then malleted squarely into place, as was the appropriate liner. Once completed, the wound was copiously irrigated and attention was then turned to femoral preparation. Flexion and external rotation were performed of the exposed thigh and femoral elevators were then placed at the proximal aspect of the wound. Canal finder was used to establish the length of the canal and sequential reaming was carried out, followed by broaching. Once the appropriate stability was established with the trial broaches with flexion, extension and rotational stability, we did trial with neutral and 2 mm offset incremental necks. Once the appropriate size was decided upon, with good stability noted with flexion, extension, internal and external rotation and shuck being negative, we removed the femoral trial broach and malletted into place the permanent prosthesis with good firm fit, which was also stable to rotation. Again, the hip felt very stable to flexion, extension, internal and external rotation. Leg lengths appeared near anatomic clinically and we were quite happy with prosthesis placement. Copious irrigation was then carried out through the entirety of the wound. Primary closure of the abductors was accomplished with interrupted #2 Vicryl [id number] stitches and the IT band was then closed with interrupted #2 Vicryl, oversewn with a #2 running barbed Quill stitch. Subcutaneous fascia was closed with running barbed Quill stitch and a subcuticular Monocryl barbed Quill stitch was used for skin closure and augmented with skin cement. A sterile dressing was applied. The procedure was terminated without any complication. All counts were correct. The patient was awakened in the operative suite and taken to the recovery room in stable condition. Job ID: [id number]
[2019-08-22] MEDS ORDERED: EPINEPHrine 1 MG/10 ML Abboject SYRINGE ONE (13:39)
[2019-08-22] MEDS ORDERED: Norepinephrine 8 MG/0.9% NS 250 ML ONE (13:39)
[2019-08-22 13:55] LABS: Actual Bicarbonate (HCO3a) 22.2 mEq/L (22-28); Base Excess (BEa) -4.4 mEq/L (-2.0 to +3.0); CO2 Tension 47.3 mmHg (35.0-45.0); Calcium, Ionized (arterial) 1.78 mmol/L (1.12-1.30); Carboxyhemoglobin (COHb) 0.6 gm% (0.0-3.0); Hemoglobin (Hb) 11.4 g/dL (14.0-18.0); Potassium - ABG Lab 3.95 mmol/L (3.70-5.30); pH, Arterial 7.29 (7.35-7.45)
[2019-08-22 13:56] LABS: O2 Tension (PaO2), arterial 37.5 mmHg (> 80.0)
[2019-08-22] MEDS ORDERED: Sodium Bicarb 50 MEQ/50 ML Abboject 8.4% SYRINGE ONE (14:00)
[2019-08-22 14:01] LABS: ALV-art Gradient 616.375 (0-20)
[2019-08-22 14:08] LABS: Actual Bicarbonate (HCO3a) 26.7 mEq/L (22-28); Base Excess (BEa) -1.5 mEq/L (-2.0 to +3.0); Calcium, Ionized (arterial) 1.18 mmol/L (1.12-1.30); Carboxyhemoglobin (COHb) 0.7 gm% (0.0-3.0); Hemoglobin (Hb) 10.3 g/dL (14.0-18.0); Potassium - ABG Lab 4.15 mmol/L (3.70-5.30)
[2019-08-22 14:09] LABS: CO2 Tension 63.7 mmHg (35.0-45.0); O2 Tension (PaO2), arterial 23.6 mmHg (> 80.0); Puncture Site ALINE; pH, Arterial 7.24 (7.35-7.45)
--- NOTE | 2019-08-22 14:13 | RAD ---
EXAM: CHEST ONE VIEW HISTORY: Code balloon with chest compressions. COMPARISON: 08/21/2019 FINDINGS: Endotracheal tube and nasogastric tubes remain in place. A left-sided vascular catheter is noted in p lace with tip overlying the expected location of the SVC. There is increased alveolar and interstitial opacities in the perihilar locations which represents interval change from the prior exa m. Findings could be related to pulmonary edema. No pneumothorax is visualized. There is partial visualization of the left humerus on this examination which demonstrates lucencies and a mottled appe arance with questionable scalloping of the cortex. However, this is incompletely visualized or evaluated on this exam. The remaining osseous structures do not demonstrate this appearance. Dedicate d views left humerus are recommended. A pacing device overlies the left hemithorax IMPRESSION: 1. Lucencies and mottled appearance of the left humeral diaphysis. Dedicated views left humerus are r ecommended for further evaluation to exclude pathological process such as multiple myeloma, metastatic disease, or other osseous lesion. 2. Lines and tubes in place as described above. No pneumothorax is seen. 3. Interval increase in bilateral interstitial and alveolar opacities greater on the left which is wo rrisome for asymmetric pulmonary edema.
[2019-08-22 14:16] LABS: ALV-art Gradient 609.775 (0-20)
[2019-08-22 14:30] LABS: Hemoglobin 9.3 g/dL (14.0-18.0); Mean Corpuscular HGB CONC 33.7 g/dL (32.0-36.0); Mean Corpuscular Hemoglobin 33.9 pg (27.0-31.0); Mean Platelet Volume 7.5 fL (7.4-10.4); Platelet Count 134 thou/uL (130-400); RBC Distribution Width 13.5 % (11.5-14.5); Red Blood Cell (RBC) Count 2.76 mill/uL (4.70-6.10); White Blood Cell (WBC) Count 0.4 thou/uL (4.8-10.8)
[2019-08-22 14:43] LABS: Anion Gap 13 mmol/L (10-20); BUN (Urea Nitrogen) 12 mg/dL (8.4-25.7); Calc. Creatinine Clearance 130 mL/min (70-130); Calcium 8.6 mg/dL (7.8-10.44); Carbon Dioxide 26 mmol/L (22-29); Chloride 114 mmol/L (98-107); Estimated GFR-MDRD Greater than 90; Glucose 175 mg/dL (70-105); Phosphorus 4.8 mg/dL (2.3-4.7); Potassium 3.9 mmol/L (3.5-5.1); Sodium 149 mmol/L (136-145)
[2019-08-22 15:04] LABS: CKMB 3.6 ng/mL (0-6.6)
--- NOTE | 2019-08-22 16:38 | CON ---
DATE OF CONSULTATION: HISTORY OF PRESENT ILLNESS: Mr. Lin is a 59-year-old male, who was found down after not being in contact with his family for multiple days. It is estimated talking to the older brother in [place] that his brother had been down for 2 to 3 days. Apparently, he was found down by a windows security analyst where he lives after the guard was called because they had been unable to get a hold of Mr. Lin. He went to the OR for an orthopedic repair of a hip fracture. He was n.p.o. for the surgery. At the beginning of surgery, he had vomit, may have aspirated. He had an NG tube placed and over 700 mL of dark brown gastric contents were evacuated. He is mechanically ventilated in the operating room, and eventually with adequate gas exchange, the procedure was started and completed. When he arrived back in the Critical Care Unit, however, he coded. I was consulted during his intermittent periods of resuscitation. Initially with epinephrine, bicarb, and adjustments to the ventilator and later followed by Ambu bagging with a PEEP valve, he was able to be resuscitated, but resuscitation periods with methodist of circulation became shorter and shorter and eventually the code efforts were no longer successful. His chest radiograph done at 1351 hours showed diffuse dense alveolar infiltrates bilaterally. White count was 400 on blood drawn during the code, which is surprising. Hemoglobin is 9.3, platelets 134,000. Electrolytes are unremarkable, creatinine is 0.57. Troponin was 0.044. We never could get good blood gas exchange with a pH of 7.29 on the first gas, 7.24 on the second gas. The PO2 in the first gas was 37, PO2 on the second gas was 23. These were both drawn from an arterial line. It would have a good waveform when he was resuscitated. It is unclear what led to the code. Certainly, in the differential is myocardial infarction, although early troponin certainly not consistent with that. If he suddenly occluded his left main, we might not have enough troponin release to pick this up. I really have never seen someone vomit aspirate and have a massive noncardiogenic pulmonary edema with an inability to ventilate despite bilevel and high PEEP ventilation. It is unlikely that he had a thromboembolic event. With a white count of 400, it would make me wonder whether or not he was becoming septic, but we will obviously sort through this. I have explained all the above to the brother in [place] after the code was called. The brother did not want an autopsy on Mr. Lin. The phone was turned over to father, José Miguel after I finished explaining everything to him. Job ID: [id number]
--- NOTE | 2019-08-24 11:34 | CON ---
DATE OF CONSULTATION: 08/22/2019 Total critical care time, 45 minutes. HISTORY OF PRESENT ILLNESS: Mr. Lin was seen in the morning of 08/22/2019. He has no current complaints. He was scheduled for surgery. He remained in sinus rhythm after cardioverting on adenosine. I was called to his bedside on the afternoon of 08/22/2019. Per Anesthesia, he aspirated prior to operation. NG tube was placed and it appeared to have fecal content. The surgery proceeded. No further issues per Anesthesia during the surgery. After surgery, he was brought up to the ICU, where he had a bradycardic episode and coded. He remained intubated. CPR was in progress. Dr. Singh was also available. The patient did have significant difficulty in oxygenation despite being intubated. His O2 saturation was in the 50s. PH was 7.2 with a PO2 in the 20-30 range. After greater than 30 minutes of CPR, the patient was pronounced . Etiology to current demise is unknown. The patient had no current complaints of chest pain or pressure noted prior. His LVEF was at the lower limits of normal. He was on heparin, making PE less likely but not completely ruled out. He also had aspiration during surgery with difficulty in oxygenation. He may also have had a myocardial infarction, but no ST-T wave changes were noted suggesting PR. Job ID: [id number]
== END 2019-08-22 14:13 | disposition expired | DRG 956 ==
LOC: ERS 21:47 → SURG A 08-19 01:17 → 2NO 08-20 09:08 → CCU 08-20 20:14
PROVIDERS: ADMIT Surgery; ATTEND Surgery
PROC: 0BH17EZ Insertion of Endotracheal Airway into Trachea, Via Natural or Artificial Opening (ICD-10-PCS; 2019-08-20)
PROC: 5A1945Z Respiratory Ventilation, 24-96 Consecutive Hours (ICD-10-PCS; 2019-08-20)
PROC: 0BJ08ZZ Inspection of Tracheobronchial Tree, Via Natural or Artificial Opening Endoscopic (ICD-10-PCS; 2019-08-20)
PROC: 0SRB04A Replacement of Left Hip Joint with Ceramic on Polyethylene Synthetic Substitute, Uncemented, Open Approach (ICD-10-PCS; principal; 2019-08-22)
DX: S72.002A Fracture of unspecified part of neck of left femur, initial encounter for closed fracture (principal); T79.6XXA Traumatic ischemia of muscle, initial encounter; J96.01 Acute respiratory failure with hypoxia; E87.1 Hypo-osmolality and hyponatremia; I47.1 Supraventricular tachycardia; F10.239 Alcohol dependence with withdrawal, unspecified; E87.2 Acidosis; I24.8 Other forms of acute ischemic heart disease; E86.0 Dehydration; E87.6 Hypokalemia; E83.39 Other disorders of phosphorus metabolism; I27.20 Pulmonary hypertension, unspecified; S01.112A Laceration without foreign body of left eyelid and periocular area, initial encounter; G43.909 Migraine, unspecified, not intractable, without status migrainosus; W01.0XXA Fall on same level from slipping, tripping and stumbling without subsequent striking against object, initial encounter; Z90.49 Acquired absence of other specified parts of digestive tract
CPT/HCPCS: 20030; 36415; 36416; 70450; 71045; 71275; 72125; 80048; 80053; 80076; 80306; 80307; 81001; 81003; 81015; 82550; 82553; 82607; 82746; 82805; 83605; 83735; 84100; 84145; 84425; 84443; 84484; 85025; 85027; 85610; 85730; 86780; 87040; 87070; 87086; 87205; 87635; 90714; 92950; 93005; 93010; 93306; 94002; 94003; C9113; G0390; J0153; J0171; J1200; J1644; J2001; J2060; J2270; J2370; J2405; J2704; J3010; J3360; J3370; J3411; J3480; J3490; J7030; J7050; P9045; Q9967; U0003